=== PATIENT | male | born 1950 | race Caucasian/White ===

== ENCOUNTER 2023-11-25 22:55 | Inpatient (IN) | payer OTHER, MEDICARE, SELFPAY ==
--- NOTE | ~2023-11-25 | XR_ITS ---
AP view of the pelvis and AP and lateral views of the bilateral hips Clinical history: Pain Findings: There is an acute subcapital fracture of the right femoral neck, with mild displacement. No left femoral neck fracture seen. Osseous alignment is anatomic. Bilateral hip and SI joint spaces ar e preserved. Soft tissues are unremarkable. Impression: Acute subcapital fracture of the right femoral neck. Reviewed, dictated and finalized at location . Impression: Acute subcapital fracture of the right femoral neck.
--- NOTE | ~2023-11-25 | XR_ITS ---
EXAM: XR hip RT min 2V DATE: 11/27/2023 17:27 HISTORY: RT BIPOLAR HIP, POST-OP . COMPARISON: None available. FINDINGS: Interval bipolar hip arthroplasty of the right hip. Lateral tilt of the acetabular cup. Nor mal mineralization. No fracture or dislocation. No lytic or blastic lesion. No erosion or periosteal change. Scattered subcutaneous gas about the right hip. No radiopaque foreign body. IMPRESSION: Postsurgical changes, status post bipolar hip arthroplasty of the right hip. Reviewed, dictated and finalized at location K. IMPRESSION: Postsurgical changes, status post bipolar hip arthroplasty of the r ight hip.
--- NOTE | ~2023-11-25 | XR_ITS ---
AP and oblique views of the bilateral ribs Clinical History: Pain Findings: Acute nondisplaced fracture of the right ninth rib noted. No other fracture seen.. Lungs ar e clear, without focal consolidation or pleural effusion. Cardiomediastinal contour is within normal limits. Soft tissues are unremarkable. Impression: Probable acute nondisplaced right ninth rib fracture. Reviewed, dictated and finalized at location . Impression: Probable acute nondisplaced right ninth rib fracture.
--- NOTE | ~2023-11-25 | CT_ITS ---
CT head without contrast Indication: Status post fall Technique: Serial scans were obtained through the brain without the administration of contrast. Dose reduction technique was used on this scan by utilizing automated exposure control and iterative recon struction technique. The dose-length product (DLP) was 681.00 mGy-cm. Findings: There is no evidence of intracranial hemorrhage, mass lesion, or acute infarct. The ventri cles and subarachnoid spaces are dilated, consistent with mild atrophy. Low attenuation regions are seen within the periventricular white matter bilaterally, likely representing changes from chronic mi crovascular ischemic disease. There is no evidence of edema, mass effect or midline shift. The visu alized paranasal sinuses and mastoid air cells are clear. Impression: No intracranial hemorrhage, mass, or acute infarct. Atrophy and chronic white matter changes, as above. Reviewed, dictated and finalized at location . Impression: No intracranial hemorrhage, mass, or acute infarct. Atrophy and chronic white matter changes, as above.
[2023-11-25 22:55] VITALS: BP 118/67; PULSE 63; RESP 20; TEMP 37.1; O2SAT 92
[2023-11-25 23:04] VITALS: PULSE 64; RESP 16; O2SAT 91
--- NOTE | 2023-11-25 23:21 | ED.GENADULT ---
HPI - General Adult General Chief complaint: Fall Stated complaint: slip and fall in living room Time Seen by Provider: 11/25/23 22:59 History of Present Illness HPI narrative: Israel Corral is a 73 y/o male who presents with reports of tripping over his feet in his living room tonight. His was able to assist him up but he is having right hip pain. Denies hitting his head/ denies LOC States he uses a cane and sometimes a walker when he is out of the house but while in his home he ambulates without assistance Related Data Home Medications Medication Instructions Recorded Confirmed Suboxone 8 mg sublingual BID 11/26/23 11/26/23 carvedilol 6.25 mg tablet (Coreg) 6.25 mg PO BID 11/26/23 11/26/23 lactulose 20 gram/30 mL oral 30 ml PO TID 11/26/23 11/26/23 solution omeprazole 20 mg capsule,delayed 20 mg PO DAILY 11/26/23 11/26/23 release sertraline 100 mg tablet 100 mg PO QHS 11/26/23 11/26/23 Allergies Allergy/AdvReac Type Severity Reaction Status Date / Time Interferons Allergy Other Verified 11/25/23 23:03 ribavirin Allergy Other Verified 11/25/23 23:03 Review of Systems Review of Systems: All systems reviewed & are unremarkable except as noted in HPI and below PMFSH Social History Social History Smoking status: Former smoker Tobacco type: cigarettes Second hand tobacco smoke exposure: No Smoking end date: 04/24/06 Alcohol intake: never Substance use: never Do You Feel Safe in your Home?: Yes Lack of Transportation: No Lack of Food: Never True Current Housing: I Have Housing Concerned About Future Housing: No Difficulty Paying Gas/Electric Bills: No Difficulty Paying for Meds: No Currently Unemployed: No Education: Decline to Answer Difficulty w/ Childcare or Family Care: No Spiritual care concerns: No Exam Narrative: GENERAL: Well-appearing, well-nourished, and in no acute distress. HEAD: Normocephalic, atraumatic. EYES: PERRLA and EOMI. ENT: Nares clear, no rhinorrhea or epistaxis. Mucous membranes moist. Oropharynx without tonsillar hypertrophy exudate or other lesions. NECK: Supple. No adenopathy or masses. No carotid bruits or JVD CHEST: Clear to auscultation. No respiratory distress. No wheezes rales or rhonchi HEART: Regular rate and rhythm. No murmur heard. Normal peripheral pulses. ABDOMEN: Soft, nontender, nondistended, normal active bowel sounds. EXTREMITIES: Right hip pain / abrasion to lateral right wrist but denies any pain NEURO: No focal deficits. Alert and oriented x3. PSYCH: Normal mood and affect. Course Vital Signs Vital signs: Vital Signs Temperature 37.1 C 11/25/23 22:55 Pulse Rate 63 11/25/23 22:55 Respiratory Rate 20 11/25/23 22:55 Blood Pressure 118/67 11/25/23 22:55 Pulse Oximetry 92 11/25/23 22:55 Oxygen Delivery Room Air 11/25/23 22:55 Temperature 36.6 C 11/28/23 15:36 Pulse Rate 63 11/28/23 15:36 Respiratory Rate 20 11/28/23 15:36 Blood Pressure 97/47 L 11/28/23 15:36 Pulse Oximetry 94 11/28/23 15:36 Oxygen Delivery Room Air 11/28/23 08:17 Oxygen Flow Rate 1 11/27/23 20:00 Fraction of Inspired Oxygen 11/26/23 22:02 Medical Decision Making MDM Narrative Medical decision making narrative: 73 y/o presents after Mechanical ground level fall at home, he was able to get back up with his 's assistance Complains of right hip pain + pain to right hip distal pulses present Denies hitting his head/ no LOC Denies chest pain No cervical / thoracic / lumbar spinal tenderness with palpation No evidence of head trauma Denies being on any blood thinners Plan to check xray of hips/pelvis/ ribs and ct brain while treating his pain Hip/ pelvic xr read by Dr. Dodge who confirms he has a right femoral neck fracture went to update pt and his is at the bedside and states he does have a hx of li
[2023-11-25 23:23] VITALS: O2SAT 95
[2023-11-25] MEDS: HYDROcodone/acetaminophen (*CRX) 5-325 MG TABLET 1 TAB PO (23:28)
[2023-11-26] VITALS (38 sets, daily range): BP systolic 104–123; BP diastolic 56–74; PULSE 63–80; RESP 16–20; TEMP 36.6–37; O2SAT 90–97; BMI 28.0
[2023-11-26 01:02] LABS: Basophils Percent Auto 0.4 % (0.2-1.2); Eosinophils Percent Auto 0.9 % (0-4.4); Hematocrit 33.4 % (42.0-52.0); Hemoglobin 11.2 g/dL (14.0-18.0); Immature Granulocyte Absolute 0.01 K/mm3 (0.00-0.031); Immature Granulocyte Percent A 0.4 % (0-0.5); Immature Platelet Fraction Pct 2.9 % (0.9-11.2); Lymphocytes Absolute Auto 0.28 K/mm3 (0.9-3.2); Lymphocytes Percent Auto 12.3 % (18.3-44.2); Mean Corpuscular HGB Conc 33.5 g/dl (32-36); Mean Corpuscular Hemoglobin 34.4 pg (26-34); Mean Corpuscular Volume 102.5 fl (80-100); Mean Platelet Volume 9.8 fl (7.4-10.4); Monocytes Absolute Auto 0.1 K/mm3 (0.1-0.6); Monocytes Percent Auto 4.4 % (2.6-8.5); Neutrophils Absolute Auto 1.9 K/mm3 (1.3-6.7); Neutrophils Percent Auto 81.6 % (45.5-73.1); Platelet Count Result 51 k/mm3 (150-375); Red Blood Count 3.26 M/mm3 (4.6-6.20); Red Cell Distribution Width 17.4 % (11.5-14.5); White Blood Count 2.3 K/mm3 (4.5-10.0)
[2023-11-26 01:09] LABS: Alanine Aminotransferase 32 U/L (6-50); Albumin Level 3.4 g/dL (3.5-5.1); Alkaline Phosphatase 106 U/L (38-126); Anion Gap 7 mmol/L (4-12); Aspartate Amino Transferase 72 U/L (17-59); Bilirubin,Total 1.6 mg/dL (0.2-1.3); Blood Urea Nitrogen 19 mg/dL (9-20); Calcium 8.8 mg/dL (8.4-10.2); Carbon Dioxide 26 mmol/L (22-30); Chloride 104 mmol/L (98-107); Estimated CRCL calculation 58 ml/min; Estimated Glomerular Filt Rate > 60; Glucose 149 mg/dL (65-110); Potassium 4.5 mmol/L (3.4-5.0); Sodium 137 mmol/L (137-145)
[2023-11-26 01:12] LABS: INR 1.4; Prothrombin Time 17.8 Seconds (11.1-14.7)
[2023-11-26 01:34] LABS: Anisocytosis 1+; Platelet Estimate Decreased (Adequate); Schistocytes None Seen; Tear Drop Cells 1+
[2023-11-26] MEDS: MORPHINE SULFATE (*CRX) 2 MG/ML INJ IV PUSH ×4 (03:30→20:41)
--- NOTE | 2023-11-26 04:41 | PC.NURSE ---
Called [phone] for patient Sarah to let her know patients room number.
--- NOTE | 2023-11-26 05:10 | PC.NURSE ---
This patient was admitted to Room 243. Patient/family oriented to hospital policies and general routines including ID bracelet, bed and alarms, visiting hours, pain management, procedures, bathroom and other care routines, personal items, smoking policy, room service/diet, and visiting hours. Information on how to activate the Rapid Response Team has been discussed. Patient/Family are encouraged to report perceived risks to care and to ask questions if they do not understand what they are told or what they should do.
--- NOTE | 2023-11-26 05:11 | PC.NURSE ---
No medications are listed for this pt. Pt is unable to state his medications/dosages. Pt's is [facility].
--- NOTE | 2023-11-26 10:33 | PM.CNOR ---
Assessment and Plan Assessment and plan (1) Displaced fracture of right femoral neck: Code(s): S72.001A - Fracture of unspecified part of neck of right femur, initial encounter for closed fracture Status: Acute (2) Fall: Qualifiers: Encounter type: initial encounter Qualified Code(s): W19.XXXA - Unspecified fall, initial encounter Code(s): W19.XXXA - Unspecified fall, initial encounter Status: Acute (3) Closed rib fracture: Qualifiers: Encounter type: initial encounter Laterality: right Rib fracture type: single rib Qualified Code(s): S22.31XA - Fracture of one rib, right side, initial encounter for closed fracture Code(s): S22.39XA - Fracture of one rib, unspecified side, initial encounter for closed fracture Status: Acute Plan Displaced right hip femoral neck fracture. Will benefit from bipolar hemiarthroplasty. History of liver cirrhosis. Platelets are quite low. Discussed potential for need of platelet transfusion. Over 50 should be adequate. Will discuss with the hospitalist, and anesthesia. Discussed care plan with Case Management. Good potential candidate for rehab for 2-4 weeks. Proceed with right hip bipolar hemiarthroplasty. Risks, benefits, and alternatives discussed. History of Present Illness HPI Consult date: 11/26/23 Chief complaint: Right hip fracture/Fall Narrative: Patient complains of acute hip pain. Fell from standing height. Admitted through the emergency room for definitive management. No previous hip pain. Comfortable at rest with morphine. No numbness, tingling, or other associated symptoms. Relevant history includes cirrhosis of the liver with low platelet count at 51. Review of Systems Review of Systems: Denies loss of consciousness. O2 sats at 92%. Improved with O2 nasal cannula. All systems reviewed & are unremarkable except as noted in HPI and below [facility] [place] Social History Social History Smoking status: Former smoker Tobacco type: cigarettes Second hand tobacco smoke exposure: No Smoking end date: 04/24/06 Alcohol intake: never Substance use: never Do You Feel Safe in your Home?: Yes Lack of Transportation: No Lack of Food: Never True Current Housing: I Have Housing Concerned About Future Housing: No Difficulty Paying Gas/Electric Bills: No Difficulty Paying for Meds: No Currently Unemployed: No Education: Decline to Answer Difficulty w/ Childcare or Family Care: No Spiritual care concerns: No Meds Home Medications and Allergies Allergies Allergy/AdvReac Type Severity Reaction Status Date / Time Interferons Allergy Other Verified 11/25/23 23:03 ribavirin Allergy Other Verified 11/25/23 23:03 Vital Signs Vital Signs - 24 hr 11/25/23 22:55 11/25/23 23:04 11/25/23 23:23 Temperature 37.1 C Pulse Rate 63 64 Respiratory Rate 20 16 Blood Pressure 118/67 Pulse Oximetry 92 91 95 Oxygen Delivery Room Air 11/26/23 00:07 11/26/23 00:15 11/26/23 00:30 Temperature Pulse Rate Respiratory Rate Blood Pressure Pulse Oximetry 94 95 93 Oxygen Delivery 11/26/23 00:45 11/26/23 00:59 11/26/23 01:00 Temperature Pulse Rate Respiratory Rate Blood Pressure 120/74 Pulse Oximetry 94 91 92 Oxygen Delivery 11/26/23 01:01 11/26/23 01:20 11/26/23 01:30 Temperature Pulse Rate Respiratory Rate Blood Pressure 123/68 Pulse Oximetry 95 94 90 Oxygen Delivery 11/26/23 01:31 11/26/23 01:32 11/26/23 01:45 Temperature Pulse Rate 63 Respiratory Rate 17 Blood Pressure 115/56 L Pulse Oximetry 92 91 94 Oxygen Delivery 11/26/23 02:00 11/26/23 02:01 11/26/23 02:15 Temperature Pulse Rate 79 Respiratory Rate 18 Blood Pressure 111/63 116/60 Pulse Oximetry 91 91 97 Oxygen Delivery 11/26/23 02:30 11/26/23 02:31 11/26/23 02:45 Te
--- NOTE | 2023-11-26 11:29 | PM.IMHP ---
H&P: HPI History of Present Illness Date/Time: 11/26/23 11:29 Chief Complaint: Fall Narrative: ER-HPI narrative: Israel Corral is a 73 y/o male who presents with reports of tripping over his feet in his living room tonight. His was able to assist him up but he is having right hip pain. Denies hitting his head/ denies LOC States he uses a cane and sometimes a walker when he is out of the house but while in his home he ambulates without assistance patient is found to have acute subcapital fracture of the right femoral neck. patient is seen by Dr. Messer and recommended bipolar hemiarthroplasty, patient with history of liver cirrhosis and thrombocytopenia no actual counts of platelet are available, repeat cbc with MD showed platelets of 52,000, patient needs to have minimum of 50,000 for the surgery. Patient had been daily drinker of 8oz whisky for 18yrs until last september of 2022 and since then he has not had any alcohol. patient fell on right side and has complained for right rib pain,, x-ray showed acute nondisplaced right 9th rib fracture. Review of Systems Review of Systems: Denies loss of consciousness. O2 sats at 92%. Improved with O2 nasal cannula. All systems reviewed & are unremarkable except as noted in HPI and below PMFSH Social History Social History Smoking status: Former smoker Tobacco type: cigarettes Second hand tobacco smoke exposure: No Smoking end date: 04/24/06 Alcohol intake: never Substance use: never Do You Feel Safe in your Home?: Yes Lack of Transportation: No Lack of Food: Never True Current Housing: I Have Housing Concerned About Future Housing: No Difficulty Paying Gas/Electric Bills: No Difficulty Paying for Meds: No Currently Unemployed: No Education: Decline to Answer Difficulty w/ Childcare or Family Care: No Spiritual care concerns: No Meds Home Medications and Allergies Home Medications Medication Instructions Recorded Confirmed Type Suboxone 8 mg sublingual BID 11/26/23 11/26/23 History carvedilol 6.25 mg tablet (Coreg) 6.25 mg PO BID 11/26/23 11/26/23 History lactulose 20 gram/30 mL oral 30 ml PO TID 08/04/24 08/04/24 History solution omeprazole 20 mg capsule,delayed 20 mg PO DAILY 11/26/23 11/26/23 History release sertraline 100 mg tablet 100 mg PO QHS 11/26/23 11/26/23 History Allergies Allergy/AdvReac Type Severity Reaction Status Date / Time Interferons Allergy Other Verified 11/25/23 23:03 ribavirin Allergy Other Verified 11/25/23 23:03 Vital Signs Vital Signs - 24 hr 11/25/23 22:55 11/25/23 23:04 11/25/23 23:23 Temperature 37.1 C Pulse Rate 63 64 Respiratory Rate 20 16 Blood Pressure 118/67 Pulse Oximetry 92 91 95 Oxygen Delivery Room Air 11/26/23 00:07 11/26/23 00:15 11/26/23 00:30 Temperature Pulse Rate Respiratory Rate Blood Pressure Pulse Oximetry 94 95 93 Oxygen Delivery 11/26/23 00:45 11/26/23 00:59 11/26/23 01:00 Temperature Pulse Rate Respiratory Rate Blood Pressure 120/74 Pulse Oximetry 94 91 92 Oxygen Delivery 11/26/23 01:01 11/26/23 01:20 11/26/23 01:30 Temperature Pulse Rate Respiratory Rate Blood Pressure 123/68 Pulse Oximetry 95 94 90 Oxygen Delivery 11/26/23 01:31 11/26/23 01:32 11/26/23 01:45 Temperature Pulse Rate 63 Respiratory Rate 17 Blood Pressure 115/56 L Pulse Oximetry 92 91 94 Oxygen Delivery 11/26/23 02:00 11/26/23 02:01 11/26/23 02:15 Temperature Pulse Rate 79 Respiratory Rate 18 Blood Pressure 111/63 116/60 Pulse Oximetry 91 91 97 Oxygen Delivery 11/26/23 02:30 11/26/23 02:31 11/26/23 02:45 Temperature Pulse Rate Respiratory Rate Blood Pressure 116/60 Pulse Oximetry 92 93 92 Oxygen Delivery 11/26/23 03:00 11/26/23 03:01 11/26/23 03:15 Temperature Pulse Rate Re
[2023-11-26] MEDS: LACTULOSE 20 GM/30 ML UDC PO ×2 (12:31→18:10)
[2023-11-26 12:32] LABS: Eosinophils Percent Auto 0.9 % (0-4.4); Hematocrit 33.3 % (42.0-52.0); Hemoglobin 11.2 g/dL (14.0-18.0); Immature Granulocyte Absolute 0.01 K/mm3 (0.00-0.031); Immature Granulocyte Percent A 0.3 % (0-0.5); Immature Platelet Fraction Pct 3.2 % (0.9-11.2); Lymphocytes Absolute Auto 0.46 K/mm3 (0.9-3.2); Lymphocytes Percent Auto 13.1 % (18.3-44.2); Mean Corpuscular HGB Conc 33.6 g/dl (32-36); Mean Corpuscular Hemoglobin 34.5 pg (26-34); Mean Corpuscular Volume 102.5 fl (80-100); Mean Platelet Volume 11.1 fl (7.4-10.4); Monocytes Absolute Auto 0.3 K/mm3 (0.1-0.6); Monocytes Percent Auto 9.4 % (2.6-8.5); Neutrophils Absolute Auto 2.7 K/mm3 (1.3-6.7); Neutrophils Percent Auto 76.3 % (45.5-73.1); Platelet Count Result 52 k/mm3 (150-375); Red Blood Count 3.25 M/mm3 (4.6-6.20); Red Cell Distribution Width 17.4 % (11.5-14.5); White Blood Count 3.5 K/mm3 (4.5-10.0)
[2023-11-26] MEDS: carvediloL 6.25 MG TABLET PO ×2 (18:10→20:37)
--- NOTE | 2023-11-26 19:57 | PC.NURSE ---
Spoke with Dr. Pro to determine if patient should continue home suboxone while on morphine in hospital. Dr. Pro asked me to call pharmacy and if they recommend we should hold suboxone, may place it on hold. Spoke with [place] in pharmacy who ultimately concluded I should discuss with surgeon, as it is his preference of how we manage patient's pain during/after surgery and at discharge. Spoke wih Dr. Messer and he would like me to place suboxone on hold at this time until he is able to discuss with anesthesia how to precede. Patient has seemed fairly comfortable with PRN morphine that he has been receiving today for pain management, no suboxone since yesterday. Dr. Messer to decide whether to do morphine/PO narcotics or suboxone for pain management while hospitalized and at discharge.
[2023-11-26] MEDS: SERTRALINE HCL 50 MG TABLET 100 MG PO (20:37)
[2023-11-27] VITALS (21 sets, daily range): BP systolic 98–121; BP diastolic 52–84; PULSE 58–81; RESP 12–19; TEMP 36.2–37.2; O2SAT 92–100
[2023-11-27] MEDS: MORPHINE SULFATE (*CRX) 2 MG/ML INJ IV PUSH ×2 (06:21→09:17)
[2023-11-27 06:58] LABS: Basophils Percent Auto 0.3 % (0.2-1.2); Eosinophils Percent Auto 0.9 % (0-4.4); Hematocrit 34.4 % (42.0-52.0); Hemoglobin 11.6 g/dL (14.0-18.0); Immature Granulocyte Absolute 0.01 K/mm3 (0.00-0.031); Immature Granulocyte Percent A 0.3 % (0-0.5); Immature Platelet Fraction Pct 3.2 % (0.9-11.2); Lymphocytes Absolute Auto 0.54 K/mm3 (0.9-3.2); Lymphocytes Percent Auto 16.7 % (18.3-44.2); Mean Corpuscular HGB Conc 33.7 g/dl (32-36); Mean Corpuscular Hemoglobin 34.4 pg (26-34); Mean Corpuscular Volume 102.1 fl (80-100); Mean Platelet Volume 9.9 fl (7.4-10.4); Monocytes Absolute Auto 0.4 K/mm3 (0.1-0.6); Monocytes Percent Auto 13.3 % (2.6-8.5); Neutrophils Absolute Auto 2.2 K/mm3 (1.3-6.7); Neutrophils Percent Auto 68.5 % (45.5-73.1); Platelet Count Result 50 k/mm3 (150-375); Red Blood Count 3.37 M/mm3 (4.6-6.20); Red Cell Distribution Width 17.6 % (11.5-14.5); White Blood Count 3.2 K/mm3 (4.5-10.0)
[2023-11-27 07:04] LABS: Alanine Aminotransferase 29 U/L (6-50); Albumin Level 3.2 g/dL (3.5-5.1); Alkaline Phosphatase 78 U/L (38-126); Anion Gap 6 mmol/L (4-12); Aspartate Amino Transferase 58 U/L (17-59); Bilirubin,Total 2.1 mg/dL (0.2-1.3); Blood Urea Nitrogen 16 mg/dL (9-20); Calcium 8.3 mg/dL (8.4-10.2); Carbon Dioxide 26 mmol/L (22-30); Chloride 103 mmol/L (98-107); Estimated CRCL calculation 81 ml/min; Estimated Glomerular Filt Rate > 60; Glucose 100 mg/dL (65-110); Magnesium 1.6 mg/dL (1.6-2.3); Potassium 4.1 mmol/L (3.4-5.0); Sodium 135 mmol/L (137-145)
[2023-11-27] MEDS: PANTOPRAZOLE 40 MG TABLET PO (09:09)
[2023-11-27] MEDS: carvediloL 6.25 MG TABLET PO ×2 (09:10→20:21)
--- NOTE | 2023-11-27 12:17 | PM.IMPN ---
Progress Note: A&P Assessment and Plan (1) Displaced fracture of right femoral neck: Code(s): S72.001A - Fracture of unspecified part of neck of right femur, initial encounter for closed fracture Status: Acute Assessment and Plan: - Scheduled for bipolar hemiarthroplasty today. - Maintain bedrest. - Maintain butts pre-op. - Pain meds PRN. - PT/OT consult post-op with ortho restrictions. - Consider rehab placement pending PT/OT eval post-op. (2) Fall: Qualifiers: Encounter type: initial encounter Qualified Code(s): W19.XXXA - Unspecified fall, initial encounter Code(s): W19.XXXA - Unspecified fall, initial encounter Status: Acute Assessment and Plan: - Mechanical per patient statement. - Denies hitting head or LOC. - CT head: No intracranial hemorrhage, mass, or acute infarct. Atrophy and chronic white matter changes. (3) Closed rib fracture: Qualifiers: Encounter type: initial encounter Laterality: right Rib fracture type: single rib Qualified Code(s): S22.31XA - Fracture of one rib, right side, initial encounter for closed fracture Code(s): S22.39XA - Fracture of one rib, unspecified side, initial encounter for closed fracture Status: Acute Assessment and Plan: - X-Ray Ribs: Probable acute nondisplaced right ninth rib fracture. - Conservative mgt with pain meds PRN. - Continue to encourage with IS use. (4) Acquired thrombocytopenia: Code(s): D69.6 - Thrombocytopenia, unspecified Status: Chronic Assessment and Plan: - Possibly related to liver cirrhosis. - Platelet count trended down; 51,000>>52,000>>50,000. - Monitor closely post-op. - Consider platelet transfusion if levels < 50,000. - Monitor for bleeding signs. - SCD's for DVT PPx. (5) Chronic liver disease and cirrhosis: Code(s): K74.60 - Unspecified cirrhosis of liver; K76.9 - Liver disease, unspecified Status: Chronic Assessment and Plan: - Hx of alcoholism previously. - LFT's appear stable. - Monitor trend. Plan # Code Status: FULL-CODE. # Diet: NPO # DVT PPx: SCD's. # GI PPx: Protonix Time Spent With Patient Time with patient: 25 - 35 minutes Subjective Date/time seen: 11/27/23 11:05 Interval history: Patient is a 73 y/o male who presented to the ER after tripping over his feet in his living. His was able to assist him but he was having right hip pain so presented to the ER for evaluation. Patient denied hitting his head/ denied LOC, stated he uses a cane and sometimes a walker when he is out of the house otherwise he ambulates without assistance at home. Patient was found to have acute subcapital fracture of the right femoral neck and has been seen by Ortho Dr. Messer, who has recommended bipolar hemiarthroplasty scheduled this afternoon. Patient has a Hx of liver cirrhosis and thrombocytopenia from, but has no previous counts of platelet are available for comparison. Patient needs to have minimum of 50,000 for the surgery. Patient had been a daily drinker of 8oz whisky for 18yrs until last september of 2022 and has not had any alcohol since. Patient fell on Right side and reported right rib pain,,, X-Ray showed acute nondisplaced Right 9th rib fracture. Pt currently on bedrest and states feel comfortable unless he moves on the bed, that's when he develops Right hip pain, otherwise feels ok. Pt denies numbness or tingling to chasity. extremities, denies SOB, denies chest pain, denies headache or dizziness, denies abdominal pain, nausea or vomiting. Review of Systems Review of Systems: All systems reviewed & are unremarkable except as noted in HPI and below Exam Narrative: Patient is comfortable on bedrest, NAD HEENT: Atraumatic, EOM intact, eyes clear and none icteric LUNGS:CTA chasity. HEART: RR S1S2 ABD: BS+, Soft and nontender Lower extremities: no edema MS: RT lower extremity is externally rotated, right-hip region tende
--- NOTE | 2023-11-27 12:54 | PC.NURSE ---
To OR via bed. Voiding per Castillo.
[2023-11-27] MEDS: TRANEXAMIC ACID 1,000MG/ISO100 1,000 MG/100 ML BAG 200 MG IVPB (14:30)
--- NOTE | 2023-11-27 14:57 | WPDANESEPPF ---
Anes - Initial Pre Proc Eval Procedure: Operation Date: 11/27/23 14:30 Proposed Procedures p Right Bipolar - Joseluis Messer MD Date/Time: 11/27/23 14:57 Surgeon: Smiley Bolivar NP Pre Op Diagnosis: Right hip fracture/Fall Patient Data Age: 73 Gender: M Height: 1.78 m Weight: 88.7 kg Last Vital Signs Temp 37.2 C 11/27/23 14:15 Pulse 58 L 11/27/23 14:15 Resp 12 11/27/23 14:15 BP 102/62 11/27/23 14:15 Pulse Ox 95 11/27/23 14:15 O2 Del Method Nasal Cannula 11/27/23 09:09 O2 Flow Rate 1 11/27/23 09:09 FiO2 24 11/26/23 22:02 Allergies Allergy/AdvReac Type Severity Reaction Status Date / Time Interferons Allergy Other Verified 11/25/23 23:03 ribavirin Allergy Other Verified 11/25/23 23:03 Home Medications Medication Instructions Recorded Confirmed Type Suboxone 8 mg sublingual BID 11/26/23 11/26/23 History carvedilol 6.25 mg tablet (Coreg) 6.25 mg PO BID 11/26/23 11/26/23 History lactulose 20 gram/30 mL oral 30 ml PO TID 11/26/23 11/26/23 History solution omeprazole 20 mg capsule,delayed 20 mg PO DAILY 11/26/23 11/26/23 History release sertraline 100 mg tablet 100 mg PO QHS 11/26/23 11/26/23 History Laboratory Tests 11/26/23 11/27/23 11:07 06:50 WBC 3.2 L K/mm3 (4.5-10.0) RBC 3.37 L M/mm3 (4.6-6.20) Hgb 11.6 L g/dL (14.0-18.0) Hct 34.4 L % (42.0-52.0) MCV 102.1 H fl (80-100) MCH 34.4 H pg (26-34) MCHC 33.7 g/dl (32-36) RDW 17.6 H % (11.5-14.5) Plt Count 50 L k/mm3 (150-375) MPV 9.9 fl (7.4-10.4) Immature Gran % (Auto) 0.3 % (0-0.5) Neut % (Auto) 68.5 % (45.5-73.1) Lymph % (Auto) 16.7 L % (18.3-44.2) Coffey % (Auto) 13.3 H % (2.6-8.5) Eos % (Auto) 0.9 % (0-4.4) Baso % (Auto) 0.3 % (0.2-1.2) Lymph # (Auto) 0.54 L K/mm3 (0.9-3.2) Coffey # (Auto) 0.4 K/mm3 (0.1-0.6) Eos # (Auto) 0.0 K/mm3 (0-0.3) Baso # (Auto) 0.0 K/mm3 (0.0-0.1) Abs Immat Gran (auto) 0.01 K/mm3 (0.00-0.031) Absolute Neuts (auto) 2.2 K/mm3 (1.3-6.7) Absolute Nucleated RBC 0.000 K/mm3 (0.0-0.012) Nucleated RBC % 0.0 % (0.0-0.2) % Immature Plt Fraction 3.2 % (0.9-11.2) Sodium 135 L mmol/L (137-145) Potassium 4.1 mmol/L (3.4-5.0) Chloride 103 mmol/L (98-107) Carbon Dioxide 26 mmol/L (22-30) Anion Gap 6 mmol/L (4-12) BUN 16 mg/dL (9-20) Creatinine 0.70 mg/dL (0.7-1.3) Estim Creat Clear Calc 81 ml/min Estimated GFR > 60 (59 - ) Glucose 100 mg/dL (65-110) Calcium 8.3 L mg/dL (8.4-10.2) Magnesium 1.6 mg/dL (1.6-2.3) Total Bilirubin 2.1 H mg/dL (0.2-1.3) AST 58 U/L (17-59) ALT 29 U/L (6-50) Alkaline Phosphatase 78 U/L (38-126) Total Protein 8.0 g/dL (6.3-8.2) Albumin 3.2 L g/dL (3.5-5.1) Blood Type A Positive Antibody Screen Negative Patient hx anesthesia problems: none Family hx anesthesia problems: none Results Review: All pre-operative results and documents have been reviewed as part of the pre-operative evaluation. [facility] Social History Social History Smoking status: Former smoker Tobacco type: cigarettes Second hand tobacco smoke exposure: No Smoking end date: 04/24/06 Alcohol intake: never Substance use: never Do You Feel Safe in your Home?: Yes Lack of Transportation: No Lack of Food: Never True Current Housing: I Have Housing Concerned About Future Housing: No Difficulty Paying Gas/Electric Bills: No Difficulty Paying for Meds: No Currently Unemployed: No Education: Decline to Answer Difficulty w/ Childcare or Family Care: No Spiritual care concerns: No Anes - Eval Final PreProcedure
--- NOTE | 2023-11-27 15:08 | WPDHPUPDATE1 ---
History and Physical Update Update Date/Time: 11/27/23 15:08 History and Physical has been reviewed, including an updated exam of the patient. There are NO changes in the patient's condition. Risks, benefits, and alternatives have been discussed and questions answered. Patient agrees to proceed with procedure.
[2023-11-27] MEDS: ceFAZolin 2 GM/D5W 50 ML 2 GM/50 ML BAG IVPB ×2 (15:25→23:38)
[2023-11-27] MEDS: SODIUM CHLORIDE 0.9% IV 37.7 ML, MORPHINE SULFATE INJ (*CRX) 2 MG, ROPivacaine HCL 1% 2... INFILTRATE (16:02)
[2023-11-27] MEDS: LACTATED RINGERS 1,000 ML 30 ML IV CONT (17:00)
[2023-11-27] MEDS: fentaNYL CITRATE INJ (*CRX) 100 MCG/2 ML VIAL 25 MCG IV PUSH ×2 (17:09→17:21)
--- NOTE | 2023-11-27 17:09 | P.OP_ITS ---
Procedure Note - Detailed Date of Procedure 11/27/23 Pre-op Diagnosis 1. Displaced right hip femoral neck fracture 2. Liver cirrhosis with low platelets Post-op Diagnosis Same Procedure Performed Bipolar hemiarthroplasty right hip. Surgeon Joseluis Messer MD [employer] Bette Love PA-C Anesthesia General Findings 1 unit of platelets given preoperatively and a 2nd given during the procedure. [id number] intra-operative bleeding. Estimated at 500 mL. Careful coagulation with bipolar electrocautery utilized throughout the procedure. Dissection minimized as able. No significant abnormal findings. Good bone quality. No acetabular degeneration. Description of Procedure A general anesthetic was administered. The patient was carefully placed in the lateral decubitus position on the peg board positioner. An axillary roll was placed. The hip was prepped and draped in the usual sterile fashion. A minimally invasive optimized posterior approach to the hip was performed. An L shaped capsulotomy was created along the upper border of the piriformis. The short external rotators were tagged with number 2 high strength suture for later repair. The labrum was preserved. The femoral neck cut was performed. The femora l head was removed and sized. The acetabular floor was cleared of debris and loose tissue. The femur was sequentially broached. Trial was assessed for leg length and stability. The real component was impacted into position, trialed again, and the final head and bipolar component were assembled. The hip was reduced after copious irrigation. The short external rotators and capsule were repaired through drill holes in the posterior trochanter. The wound was closed in layers with 1 vicryl, 2,0, and 2-0 running barbed suture. Adhesive tapes were placed on the skin, followed by a sterile gauze dressing. The patient was extubated and brought to the recovery room. Implants Minh Accolate 2 hip stem 127 degree, size 5, UH are bipolar component outer diameter size 51, inner metal ball size 28 mm +4. Estimated Blood Loss 500 Urine Output 100 Drains No Pathology None sent Complications No immediate complications Condition Stable Disposition PACU [facility] Billing Surgery - Charge Forward: Surgery Billing
--- NOTE | 2023-11-27 18:00 | PC.NURSE ---
Returned from OR via bed. at bedside.
[2023-11-27] MEDS: SENNA/DOCUSATE SODIUM TABLET 2 TAB PO (18:49)
[2023-11-27] MEDS: ACETAMINOPHEN 325 MG TABLET 650 MG PO ×2 (18:49→23:37)
[2023-11-27] MEDS: LACTULOSE 20 GM/30 ML UDC PO (18:50)
[2023-11-27] MEDS: SERTRALINE HCL 50 MG TABLET 100 MG PO (20:22)
[2023-11-27] MEDS: HYDROmorphone HCL INJ (*CRX) 1 MG/ML SYR IV PUSH (20:35)
[2023-11-28 03:36] VITALS: BP 90/44; PULSE 64; RESP 20; TEMP 36.6; O2SAT 94
[2023-11-28 05:24] LABS: Hematocrit 33.6 % (42.0-52.0); Hemoglobin 10.7 g/dL (14.0-18.0); Immature Granulocyte Absolute 0.01 K/mm3 (0.00-0.031); Immature Granulocyte Percent A 0.4 % (0-0.5); Immature Platelet Fraction Pct 3.5 % (0.9-11.2); Lymphocytes Absolute Auto 0.25 K/mm3 (0.9-3.2); Lymphocytes Percent Auto 10.1 % (18.3-44.2); Mean Corpuscular HGB Conc 31.8 g/dl (32-36); Mean Corpuscular Hemoglobin 33.5 pg (26-34); Mean Corpuscular Volume 105.3 fl (80-100); Mean Platelet Volume 10.8 fl (7.4-10.4); Monocytes Absolute Auto 0.3 K/mm3 (0.1-0.6); Monocytes Percent Auto 10.5 % (2.6-8.5); Platelet Count Result 65 k/mm3 (150-375); Red Blood Count 3.19 M/mm3 (4.6-6.20); Red Cell Distribution Width 16.9 % (11.5-14.5); White Blood Count 2.5 K/mm3 (4.5-10.0)
[2023-11-28] MEDS: ACETAMINOPHEN 325 MG TABLET 650 MG PO (05:37)
[2023-11-28] MEDS: ceFAZolin 2 GM/D5W 50 ML 2 GM/50 ML BAG IVPB ×2 (05:38→16:00)
[2023-11-28 05:43] LABS: Alanine Aminotransferase 25 U/L (6-50); Alkaline Phosphatase 67 U/L (38-126); Anion Gap 7 mmol/L (4-12); Aspartate Amino Transferase 55 U/L (17-59); Bilirubin,Total 1.6 mg/dL (0.2-1.3); Blood Urea Nitrogen 26 mg/dL (9-20); Calcium 8.4 mg/dL (8.4-10.2); Carbon Dioxide 24 mmol/L (22-30); Chloride 102 mmol/L (98-107); Estimated CRCL calculation 64 ml/min; Estimated Glomerular Filt Rate > 60; Glucose 144 mg/dL (65-110); Magnesium 1.8 mg/dL (1.6-2.3); Potassium 4.8 mmol/L (3.4-5.0); Sodium 133 mmol/L (137-145)
[2023-11-28 08:00] VITALS: BP 97/57; PULSE 59; RESP 18; TEMP 36.6; O2SAT 93; O2SAT 95
[2023-11-28] MEDS: LACTULOSE 20 GM/30 ML UDC PO ×3 (08:13→18:00)
[2023-11-28 08:14] VITALS: PULSE 60
[2023-11-28] MEDS: carvediloL 6.25 MG TABLET PO (08:14)
[2023-11-28] MEDS: PANTOPRAZOLE 40 MG TABLET PO (08:15)
--- NOTE | 2023-11-28 10:09 | PM.PNORT ---
Progress Note: A&P Assessment and Plan (1) Displaced fracture of right femoral neck: Code(s): S72.001A - Fracture of unspecified part of neck of right femur, initial encounter for closed fracture Status: Acute Assessment and Plan: Postop day 1: Right bipolar hemiarthroplasty. Patient tolerated procedure well. No numbness or tingling. Due to cirrhosis, will stop the Tylenol. He would like to avoid narcotics due to a previous history of abuse. Will control pain with ibuprofen. Platelets have improved. Reviewed radiographs. We had a lengthy discussion regarding postoperative wound care, limitations, expectations, and exercises. Patient shows good understanding. Patient has had initial physical therapy and is tolerating it well. Ortho instructions: D/C to SNF/rehab Follow up in office in 4-6 weeks with xray. Wound Care:Remove Mepilex dressing at 7 days post op. Remove steristrips at 14 days post op. May shower. No soaking. PT: weightbearing as tolerated with a walker. Patient is not currently on a blood thinner for DVT prophylaxis due to his low platelet count. He is wearing SCDs. Pain medication: Ibuprofen. Subjective Subjective Date/Time Seen: 11/28/23 10:09 Interval history: Patient resting comfortably in chair. Minimal pain. Eager to start recovering and work with formal physical therapy. Review of Systems Review of Systems: All systems reviewed & are unremarkable except as noted in HPI and below Exam Narrative: Over weight 73 y/o Male. Resting comfortably in chair. Wearing compression socks bilaterally. Dressing dry and intact with no drainage. Moderate swelling. No ecchymosis. No erythema. No hematoma. Range of motion limited due to pain. Calf nontender. Thigh nontender. No varicosities. Distal pulses palpable. Objective Data Vital Signs Vital Signs: Vital Signs - 24 hr 11/27/23 13:55 11/27/23 14:00 11/27/23 14:15 Temperature 98.9 F 98.7 F 98.9 F Pulse Rate 62 62 58 L Respiratory Rate 16 16 12 Blood Pressure 101/55 L 102/62 102/62 Pulse Oximetry 100 100 95 Oxygen Delivery Oxygen Flow Rate 11/27/23 13:05 11/27/23 17:00 11/27/23 17:15 Temperature 98.5 F 97.2 F L Pulse Rate 67 68 64 Respiratory Rate 18 18 12 Blood Pressure 102/53 L 120/65 109/84 Pulse Oximetry 95 100 100 Oxygen Delivery Room Air Simple Face Mask Simple Face Mask Oxygen Flow Rate 8 8 11/27/23 17:22 11/27/23 17:30 11/27/23 17:38 Temperature Pulse Rate 62 Respiratory Rate 14 Blood Pressure 113/62 Pulse Oximetry 100 95 93 Oxygen Delivery Room Air Room Air Nasal Cannula Oxygen Flow Rate 2 11/27/23 17:45 11/27/23 18:06 11/27/23 18:00 Temperature 97.8 F Pulse Rate 66 62 Respiratory Rate 15 19 18 Blood Pressure 116/66 110/55 L Pulse Oximetry 99 99 95 Oxygen Delivery Nasal Cannula Nasal Cannula Oxygen Flow Rate 2 2 11/27/23 18:15 11/27/23 18:45 11/27/23 20:21 Temperature 97.8 F 97.8 F Pulse Rate 62 61 81 Respiratory Rate 18 18 Blood Pressure 111/57 L 103/56 L Pulse Oximetry 95 92 Oxygen Delivery Oxygen Flow Rate 11/27/23 19:36 11/27/23 20:00 11/27/23 23:36 Temperature 97.7 F 97.8 F Pulse Rate 64 65 Respiratory Rate 18 18 Blood Pressure 104/59 L 98/52 L Pulse Oximetry 95 95 94 Oxygen Delivery Nasal Cannula Oxygen Flow Rate 1 11/28/23 03:36 11/28/23 08:00 11/28/23 08:17 Temperature 97.8 F 97.8 F Pulse Rate 64 59 L Respiratory Rate 20 18 Blood Pressure 90/44 L 97/57 L Pulse Oximetry 94 93 Oxygen Delivery Room Air Oxygen Flow Rate 11/28/23 08:14 Temperature Pulse Rate 60 Respiratory Rate Blood Pressure Pulse Oximetry Oxygen Delivery Oxygen Flow Rate Intake/Output Intake/Output: Intake & Output 11/25/23 11/26/23 11/27/23 11/28/23 23:59 23:59 23:59 23:59 Intake Total 725 875 900 Output Total 530 2180 300 Balance 195 -1305 600 Meds/Results Medications: Active Medications
[2023-11-28 12:00] VITALS: BP 103/49; PULSE 63; RESP 20; TEMP 36.6; O2SAT 92
--- NOTE | 2023-11-28 12:04 | PCPTNOTE ---
On 11/28/23, the student, [Jina Acuna], provided care and completed [facility] documentation on this patient. I have reviewed the student's documentation and agree with the findings.
[2023-11-28] MEDS: IBUPROFEN 600 MG TABLET PO ×2 (12:13→18:00)
[2023-11-28 12:42] LABS: IFOB Positive Control Positive; Immunochemical Fecal Occult Bl Positive (N)
--- NOTE | 2023-11-28 12:47 | PM.IMPN ---
Progress Note: A&P Assessment and Plan (1) Displaced fracture of right femoral neck: Code(s): S72.001A - Fracture of unspecified part of neck of right femur, initial encounter for closed fracture Status: Acute Assessment and Plan: - s/p bipolar hemiarthroplasty per ortho yesterday. - Currently up on chair with PT. - Continue PT with ortho restrictions, WBAT. - Inpatient acute rehab recommended per PT/OT. - Case mgt to assist family with placement. - D/c butts. - Narcotics discontinued and suboxone restarted. - Ibuprofen PRN. - Continue PT/OT treatment with ortho restrictions. (2) Acquired thrombocytopenia: Code(s): D69.6 - Thrombocytopenia, unspecified Status: Chronic Assessment and Plan: - Possibly related to liver cirrhosis. - Platelet levels improving...50,000>>65,000 - Continue to monitor closely post-op. - Monitor for bleeding signs. - SCD's for DVT PPx. (3) Anemia associated with acute blood loss: Code(s): D62 - Acute posthemorrhagic anemia Status: Acute Assessment and Plan: - s/p hemiarthroplasty. - Hgb slightly decreased...11.6>>>10.7 - Monitor closely post-op. - No overt bleeding signs, including surgical incision region. - Monitor Hgb closely. (4) Generalized muscle weakness: Code(s): M62.81 - Muscle weakness (generalized) Status: Acute Assessment and Plan: - Deconditioning worsened by R. Hip surger. - Referred for acute rehab. - Continue PT/OT treatment. - Fall precautions. (5) Fall: Qualifiers: Encounter type: initial encounter Qualified Code(s): W19.XXXA - Unspecified fall, initial encounter Code(s): W19.XXXA - Unspecified fall, initial encounter Status: Acute Assessment and Plan: - Mechanical per patient statement. - Denies hitting head or LOC. - CT head: No intracranial hemorrhage, mass, or acute infarct. Atrophy and chronic white matter changes. - Continue PT/OT as we await rehab placement. - Fall precautions. (6) Closed rib fracture: Qualifiers: Encounter type: initial encounter Laterality: right Rib fracture type: single rib Qualified Code(s): S22.31XA - Fracture of one rib, right side, initial encounter for closed fracture Code(s): S22.39XA - Fracture of one rib, unspecified side, initial encounter for closed fracture Status: Acute Assessment and Plan: - X-Ray Ribs: Probable acute nondisplaced right ninth rib fracture. - Continue conservative mgt with pain meds PRN. - Continue to encourage with IS use. (7) Chronic liver disease and cirrhosis: Code(s): K74.60 - Unspecified cirrhosis of liver; K76.9 - Liver disease, unspecified Status: Chronic Assessment and Plan: - Hx of alcoholism previously. - LFT's stable. - Continue to monitor trend. Plan # Code Status: FULL-CODE. # Diet: NPO # DVT PPx: SCD's. # GI PPx: Protonix Time Spent With Patient Time with patient: 25 - 35 minutes Subjective Date/time seen: 11/28/23 11:45 Interval history: Patient seated on chair working working wih PT. Comfortable and in no acute distress. Pt reports pain only with movement otherwise states feels comfortable. Review of Systems Review of Systems: Denies numbness of tingling, chest pain, SOB, abdominal pain, dizziness. All systems reviewed & are unremarkable except as noted in HPI and below Exam Narrative: Patient is comfortable on chair working with PT, NAD HEENT: Atraumatic, PERRL, EOM intact, eyes clear and none icteric LUNGS:CTA chasity. HEART: RR S1S2 ABD: BS+, Soft and nontender Lower extremities: No edema chasity. LE MS: RT hip with clean,dry and intact dressing. SKIN: non-jaundiced. Dry dressing to R. Hip. Neuro: grossly intact. Cranial nerves II-XII grossly intact. Objective Data Vital Signs Vital Signs: Vital Signs - 24 hr 11/27/23 13:55 11/27/23 14:00 11/27/23 14:15 Temperature 98.9 F 98.7 F 98.9 F Pul
--- NOTE | 2023-11-28 12:55 | WPDANESPN ---
Anes - Prog Note Post-Op Date/Time: 11/28/23 12:55 Cardiovascular status: normal Respiratory status: normal Airway patency: baseline Mental status: baseline Post-Op hydration status: normal Vital Signs: Last Vital Signs Temp 36.6 C 11/28/23 12:00 Pulse 63 11/28/23 12:00 Resp 20 11/28/23 12:00 BP 103/49 L 11/28/23 12:00 Pulse Ox 92 11/28/23 12:00 O2 Del Method Room Air 11/28/23 08:17 O2 Flow Rate 1 11/27/23 20:00 FiO2 24 11/26/23 22:02 Pain Score (VAS): 210 I/O: Intake & Output 11/27/23 11/28/23 11/28/23 23:59 07:59 15:59 Intake Total 500 550 470 Output Total 1080 300 Balance -580 250 470 Laboratory Tests 11/28/23 04:56 11/28/23 04:56 11/26/23 11/28/23 11/28/23 11:07 04:56 10:24 WBC 2.5 L RBC 3.19 L Hgb 10.7 L Hct 33.6 L MCV 105.3 H MCH 33.5 MCHC 31.8 L RDW 16.9 H Plt Count 65 L MPV 10.8 H Immature Gran % (Auto) 0.4 Neut % (Auto) 79.0 H Lymph % (Auto) 10.1 L Mchenry % (Auto) 10.5 H Eos % (Auto) 0.0 Baso % (Auto) 0.0 L Lymph # (Auto) 0.25 L Mchenry # (Auto) 0.3 Eos # (Auto) 0.0 Baso # (Auto) 0.0 Abs Immat Gran (auto) 0.01 Absolute Neuts (auto) 2.0 Absolute Nucleated RBC 0.000 Nucleated RBC % 0.0 % Immature Plt Fraction 3.5 Sodium 133 L Potassium 4.8 Chloride 102 Carbon Dioxide 24 Anion Gap 7 BUN 26 H D Creatinine 0.90 Estim Creat Clear Calc 64 Estimated GFR > 60 Glucose 144 H Calcium 8.4 Magnesium 1.8 Total Bilirubin 1.6 H AST 55 ALT 25 Alkaline Phosphatase 67 Total Protein 7.0 Albumin 3.0 L Stl Occult Blood (IFOB) Positive H Blood Type A Positive Antibody Screen Negative Post-procedural complaints: none Patient Feedback: Patient satisfied with anesthetic care.
[2023-11-28 15:36] VITALS: BP 97/47; PULSE 63; RESP 20; TEMP 36.6; O2SAT 94
[2023-11-28 19:36] VITALS: BP 102/51; PULSE 66; RESP 18; TEMP 36.6; O2SAT 92
[2023-11-28] MEDS: SERTRALINE HCL 50 MG TABLET 100 MG PO (20:05)
[2023-11-28] MEDS: BUPRENORPHINE/NALOXONE (*CRX) 4 MG/1 MG SL FILM 2 EACH SUBLINGUAL (20:05)
[2023-11-29 05:56] LABS: Alanine Aminotransferase 22 U/L (6-50); Albumin Level 2.8 g/dL (3.5-5.1); Alkaline Phosphatase 78 U/L (38-126); Anion Gap 6 mmol/L (4-12); Aspartate Amino Transferase 62 U/L (17-59); Bilirubin,Total 1.3 mg/dL (0.2-1.3); Blood Urea Nitrogen 36 mg/dL (9-20); Calcium 8.2 mg/dL (8.4-10.2); Carbon Dioxide 26 mmol/L (22-30); Chloride 100 mmol/L (98-107); Estimated CRCL calculation 58 ml/min; Estimated Glomerular Filt Rate > 60; Glucose 114 mg/dL (65-110); Potassium 4.1 mmol/L (3.4-5.0); Sodium 132 mmol/L (137-145)
[2023-11-29 05:59] VITALS: BP 100/50; PULSE 75; RESP 18; TEMP 36.5; O2SAT 90
[2023-11-29] MEDS: IBUPROFEN 600 MG TABLET PO ×3 (06:29→17:42)
[2023-11-29 07:06] LABS: Eosinophils Percent Auto 1.3 % (0-4.4); Hematocrit 30.1 % (42.0-52.0); Immature Granulocyte Absolute 0.01 K/mm3 (0.00-0.031); Immature Granulocyte Percent A 0.3 % (0-0.5); Immature Platelet Fraction Pct 4.6 % (0.9-11.2); Lymphocytes Absolute Auto 0.37 K/mm3 (0.9-3.2); Lymphocytes Percent Auto 11.7 % (18.3-44.2); Mean Corpuscular HGB Conc 33.2 g/dl (32-36); Mean Corpuscular Hemoglobin 34.1 pg (26-34); Mean Corpuscular Volume 102.7 fl (80-100); Mean Platelet Volume 10.8 fl (7.4-10.4); Monocytes Absolute Auto 0.4 K/mm3 (0.1-0.6); Monocytes Percent Auto 11.7 % (2.6-8.5); Neutrophils Absolute Auto 2.4 K/mm3 (1.3-6.7); Platelet Count Result 61 k/mm3 (150-375); Red Blood Count 2.93 M/mm3 (4.6-6.20); Red Cell Distribution Width 16.9 % (11.5-14.5); White Blood Count 3.2 K/mm3 (4.5-10.0)
[2023-11-29 08:33] VITALS: O2SAT 92
[2023-11-29] MEDS: LACTULOSE 20 GM/30 ML UDC PO ×3 (09:29→16:48)
[2023-11-29 09:30] VITALS: RESP 18; O2SAT 92
[2023-11-29] MEDS: PANTOPRAZOLE 40 MG TABLET PO (09:30)
[2023-11-29] MEDS: BUPRENORPHINE/NALOXONE (*CRX) 4 MG/1 MG SL FILM 2 EACH SUBLINGUAL ×2 (09:30→20:23)
--- NOTE | 2023-11-29 10:11 | PM.IMPN ---
Progress Note: A&P Assessment and Plan (1) Displaced fracture of right femoral neck: Code(s): S72.001A - Fracture of unspecified part of neck of right femur, initial encounter for closed fracture Status: Acute Assessment and Plan: - s/p bipolar hemiarthroplasty per ortho. - Currently up on chair and we'll continue PT/OT treatment. - Continue WBAT per ORtho. - Awaiting Inpatient acute rehab placement per PT/OT recommendations. - Castillo discontinued and pt voiding well. - Narcotics discontinued and pain well controlled with Suboxone, patient's home meds. - Ibuprofen PRN. (2) Altered mental status: Code(s): R41.82 - Altered mental status, unspecified Status: Acute Assessment and Plan: - Possibly secondary to hepatic encephalopathy. - Ammonia levels elevated. - Lactulose initially held but resumed yesterday. - Continue Lactulose. - Continue to trend ammonia levels. (3) Acquired thrombocytopenia: Code(s): D69.6 - Thrombocytopenia, unspecified Status: Chronic Assessment and Plan: - Likely related to liver cirrhosis. - Platelet levels remain stable. - Continue to monitor. - Monitor for bleeding signs. - SCD's for DVT PPx. (4) GI bleed: Qualifiers: GI bleed type/associated pathology: unspecified gastrointestinal hemorrhage type Qualified Code(s): K92.2 - Gastrointestinal hemorrhage, unspecified Code(s): K92.2 - Gastrointestinal hemorrhage, unspecified Status: Acute Assessment and Plan: - FOB +ve inpatient. - Pt s/p hemiarthroplasty and would possibly not tolerate GI w/u currently. - Spouse bedside reports pt had a diagnostic colonoscopy within the last year and only colol polyps observed. - High risk for GI bleed with liver cirrhosis and thrombocytopenia. - Spouse prefers to f/u with pt GI at the [place]. - Continue to monitor Hgb levels closely. (5) Anemia associated with acute blood loss: Code(s): D62 - Acute posthemorrhagic anemia Status: Acute Assessment and Plan: - s/p hemiarthroplasty. - Hgb trending down..11.6>>>10.7>>10.0 - Possible in the setting of post-op. - Continue to monitor levels closely. - No overt bleeding signs noted, including on surgical incision region. (6) Generalized muscle weakness: Code(s): M62.81 - Muscle weakness (generalized) Status: Acute Assessment and Plan: - Deconditioning worsened by R. Hip surgery and possibly hepatic encephalopathy. - Continue PT/OT treatment. - Awaiting placement for acute inpatient rehab. - Fall precautions. (7) Fall: Qualifiers: Encounter type: initial encounter Qualified Code(s): W19.XXXA - Unspecified fall, initial encounter Code(s): W19.XXXA - Unspecified fall, initial encounter Status: Acute Assessment and Plan: - Mechanical per patient statement and family. - Denies hitting head or LOC. - CT head: No intracranial hemorrhage, mass, or acute infarct. Atrophy and chronic white matter changes. - Continue PT/OT treatment. - Fall precautions. (8) Closed rib fracture: Qualifiers: Encounter type: initial encounter Laterality: right Rib fracture type: single rib Qualified Code(s): S22.31XA - Fracture of one rib, right side, initial encounter for closed fracture Code(s): S22.39XA - Fracture of one rib, unspecified side, initial encounter for closed fracture Status: Acute Assessment and Plan: - X-Ray Ribs: Probable acute nondisplaced right ninth rib fracture. - Continue conservative mgt with pain meds PRN. - Continue to encourage with IS use. (9) Chronic liver disease and cirrhosis: Code(s): K74.60 - Unspecified cirrhosis of liver; K76.9 - Liver disease, unspecified Status: Chronic Assessment and Plan: - Previous Hx of alcoholism. - LFT's remain fairly stable. - Trend serum Ammonia levels. - Continue to monitor for changes in mentation. (10) Depressed mood:
[2023-11-29 11:20] LABS: Ammonia 45 umol/L (9-30)
--- NOTE | 2023-11-29 12:15 | PM.PNORT ---
Progress Note: A&P Assessment and Plan (1) Displaced fracture of right femoral neck: Code(s): S72.001A - Fracture of unspecified part of neck of right femur, initial encounter for closed fracture Status: Acute Assessment and Plan: Postop day 2: Right bipolar hemiarthroplasty. No changes in care plan. Patient tolerated procedure well. No numbness or tingling. Due to cirrhosis, will stop the Tylenol. He would like to avoid narcotics due to a previous history of abuse. Will control pain with ibuprofen. Platelets have improved. Reviewed radiographs. We had a lengthy discussion regarding postoperative wound care, limitations, expectations, and exercises. Patient shows good understanding. Patient has had initial physical therapy and is tolerating it well. Ortho instructions: D/C to SNF/rehab Follow up in office in 4-6 weeks with xray. Wound Care:Remove Mepilex dressing at 7 days post op. Remove steristrips at 14 days post op. May shower. No soaking. PT: weightbearing as tolerated with a walker. Patient is not currently on a blood thinner for DVT prophylaxis due to his low platelet count. He is wearing SCDs. Pain medication: Ibuprofen. Subjective Subjective Date/Time Seen: 11/29/23 12:15 Interval history: Patient sitting in a chair at the time of my visit. Pain controlled with ibuprofen. He is back on suboxone. Review of Systems Review of Systems: All systems reviewed & are unremarkable except as noted in HPI and below Exam Narrative: Over weight 73 y/o Male. Resting comfortably in chair. Wearing compression socks bilaterally. Dressing dry and intact with no drainage. Moderate swelling. No ecchymosis. No erythema. No hematoma. Range of motion limited due to pain. Calf nontender. Thigh nontender. No varicosities. Distal pulses palpable. Objective Data Vital Signs Vital Signs: Vital Signs - 24 hr 11/28/23 15:36 11/28/23 19:36 11/28/23 20:00 Temperature 97.8 F 97.8 F Pulse Rate 63 66 Respiratory Rate 20 18 Blood Pressure 97/47 L 102/51 L Pulse Oximetry 94 92 Oxygen Delivery Room Air Fraction of Inspired Oxygen 11/29/23 05:59 11/29/23 08:33 11/29/23 09:30 Temperature 97.7 F Pulse Rate 75 Respiratory Rate 18 18 Blood Pressure 100/50 L Pulse Oximetry 90 92 92 Oxygen Delivery Room Air Room Air Fraction of Inspired Oxygen 21 Intake/Output Intake/Output: Intake & Output 11/26/23 11/27/23 11/28/23 11/29/23 23:59 23:59 23:59 23:59 Intake Total 952 514 3754 410 Output Total 530 2180 850 500 Balance 195 1305 710 -90 Meds/Results Medications: Active Medications Generic Name Dose Route Start Last Admin Trade Name Freq PRN Reason Stop Dose Admin Buprenorphine/Naloxone 2 each 11/28/23 21:00 11/29/23 09:30 Buprenorphine/Naloxone (*Crx) 4 Mg/1 Mg Sl Film SUBLINGUAL 2 each Q12HR ELKIN Administration Carvedilol 6.25 mg 11/26/23 17:00 11/28/23 08:14 Carvedilol 6.25 Mg Tablet PO 6.25 mg Q12HR ELKIN Administration Hydroxyzine Pamoate 50 mg 11/27/23 17:51 Hydroxyzine Pamoate 25 Mg Capsule PO Q4H PRN Itching Ibuprofen 800 mg in 200 mls @ 400 mls/hr 11/27/23 17:51 Caldolor 800 Mg/200 Ml IVPB Q6H PRN Breakthrough Pain Rated 1-3 or NPO Ibuprofen 600 mg 11/28/23 10:05 11/29/23 11:44 Ibuprofen 600 Mg Tablet PO 600 mg Q6HR ELKIN Administration Lactulose 20 gm 11/26/23 13:00 11/29/23 09:29 Lactulose 20 Gm/30 Ml Udc PO 20 gm TID ELKIN Administration Naloxone HCl 0.1 mg 11/27/23 17:51 Naloxone Hcl 0.4 Mg/Ml Vial IV PUSH Q2M PRN Opiate Reversal Ondansetron HCl 4 mg 11/27/23 14:58 Ondansetron Inj 4 Mg/2 Ml Vial IV PUSH ONCE PRN Nausea Ondansetron HCl 4 mg 11/27/23 17:51 Ondansetron Inj 4 Mg/2 Ml Vial IV PUSH Q4H PRN Nausea And Vomiting Pantoprazole Sodium 40 mg 11/27/23 09:00 11/29/23 09:30 Pantoprazole 40 Mg Tablet PO 4
[2023-11-29 14:23] VITALS: BP 107/49; PULSE 77; RESP 20; TEMP 37.1; O2SAT 90
--- NOTE | 2023-11-29 14:36 | PCOTNOTE ---
Attempted to see Patient at this time. Patient sleeping in the bed at this time. Patient declined participating in activity this afternoon. Patient stated he is so tired, Patient having difficulty answering questions. Nursing staff notified and stated per his , Patient is on a medication at home to assist him with bowel movements and he has no t had the medication and is having cognition problems due to this. Patient has been confused all day today.
[2023-11-29] MEDS: SERTRALINE HCL 50 MG TABLET 100 MG PO (20:23)
[2023-11-29 22:00] VITALS: BP 116/52; PULSE 77; RESP 18; TEMP 36.8; O2SAT 96
[2023-11-30 06:00] VITALS: BP 106/55; PULSE 75; RESP 16; TEMP 36.6; O2SAT 94
[2023-11-30 06:18] LABS: Basophils Percent Auto 0.4 % (0.2-1.2); Eosinophils Percent Auto 1.5 % (0-4.4); Hematocrit 28.9 % (42.0-52.0); Hemoglobin 9.7 g/dL (14.0-18.0); Immature Granulocyte Absolute 0.01 K/mm3 (0.00-0.031); Immature Granulocyte Percent A 0.4 % (0-0.5); Lymphocytes Absolute Auto 0.54 K/mm3 (0.9-3.2); Lymphocytes Percent Auto 19.7 % (18.3-44.2); Mean Corpuscular HGB Conc 33.6 g/dl (32-36); Mean Corpuscular Hemoglobin 34.5 pg (26-34); Mean Corpuscular Volume 102.8 fl (80-100); Monocytes Absolute Auto 0.4 K/mm3 (0.1-0.6); Monocytes Percent Auto 15.7 % (2.6-8.5); Neutrophils Absolute Auto 1.7 K/mm3 (1.3-6.7); Neutrophils Percent Auto 62.3 % (45.5-73.1); Platelet Count Result 52 k/mm3 (150-375); Red Blood Count 2.81 M/mm3 (4.6-6.20); White Blood Count 2.7 K/mm3 (4.5-10.0)
[2023-11-30 06:26] LABS: Ammonia 16 umol/L (9-30)
[2023-11-30 06:32] LABS: Alanine Aminotransferase 21 U/L (6-50); Albumin Level 2.6 g/dL (3.5-5.1); Alkaline Phosphatase 78 U/L (38-126); Anion Gap 5 mmol/L (4-12); Aspartate Amino Transferase 53 U/L (17-59); Bilirubin,Total 1.5 mg/dL (0.2-1.3); Blood Urea Nitrogen 31 mg/dL (9-20); Calcium 8.3 mg/dL (8.4-10.2); Carbon Dioxide 29 mmol/L (22-30); Chloride 99 mmol/L (98-107); Estimated CRCL calculation 72 ml/min; Estimated Glomerular Filt Rate > 60; Glucose 126 mg/dL (65-110); Sodium 133 mmol/L (137-145)
[2023-11-30] MEDS: IBUPROFEN 600 MG TABLET PO ×3 (07:36→17:32)
[2023-11-30 07:48] LABS: Glucose Point of Care 130 mg/dl (65-105)
[2023-11-30] MEDS: LACTULOSE 20 GM/30 ML UDC PO ×3 (08:59→17:32)
[2023-11-30] MEDS: traMADol HCL (*CRX) 50 MG TABLET PO (08:59)
[2023-11-30] MEDS: PANTOPRAZOLE 40 MG TABLET PO (08:59)
[2023-11-30] MEDS: BUPRENORPHINE/NALOXONE (*CRX) 4 MG/1 MG SL FILM 2 EACH SUBLINGUAL ×2 (08:59→20:42)
--- NOTE | 2023-11-30 11:44 | PM.IMPN ---
Progress Note: A&P Assessment and Plan (1) Displaced fracture of right femoral neck: Code(s): S72.001A - Fracture of unspecified part of neck of right femur, initial encounter for closed fracture Status: Acute Assessment and Plan: - s/p bipolar hemiarthroplasty per ortho. - Currently up on chair and we'll continue PT/OT treatment. - Continue WBAT per ORtho. - Awaiting Inpatient acute rehab placement per PT/OT recommendations. - Castillo discontinued and pt voiding well. - Narcotics discontinued and pain well controlled with Suboxone, patient's home meds. - Ibuprofen PRN. (2) Altered mental status: Code(s): R41.82 - Altered mental status, unspecified Status: Acute Assessment and Plan: - Possibly secondary to hepatic encephalopathy. - Ammonia 16 down from 43 - Continue Lactulose. - Continue to trend ammonia levels. (3) Acquired thrombocytopenia: Code(s): D69.6 - Thrombocytopenia, unspecified Status: Chronic Assessment and Plan: - Likely related to liver cirrhosis. - Platelet levels remain stable. - Continue to monitor. - Monitor for bleeding signs. - SCD's for DVT PPx. (4) GI bleed: Qualifiers: GI bleed type/associated pathology: unspecified gastrointestinal hemorrhage type Qualified Code(s): K92.2 - Gastrointestinal hemorrhage, unspecified Code(s): K92.2 - Gastrointestinal hemorrhage, unspecified Status: Acute Assessment and Plan: - FOB +ve inpatient. - Pt s/p hemiarthroplasty and would possibly not tolerate GI w/u currently. - Spouse bedside reports pt had a diagnostic colonoscopy within the last year and only colol polyps observed. - High risk for GI bleed with liver cirrhosis and thrombocytopenia. - Spouse prefers to f/u with pt GI at the [place]. - Continue to monitor Hgb levels closely. (5) Anemia associated with acute blood loss: Code(s): D62 - Acute posthemorrhagic anemia Status: Acute Assessment and Plan: - s/p hemiarthroplasty. - Hgb trending down..11.6>>>10.7>>10.0 - Possible in the setting of post-op. - Continue to monitor levels closely. - No bleeding, iron panel and B12/folate pendign (6) Generalized muscle weakness: Code(s): M62.81 - Muscle weakness (generalized) Status: Acute Assessment and Plan: - Deconditioning worsened by R. Hip surgery and possibly hepatic encephalopathy. - Continue PT/OT treatment. - Awaiting placement for acute inpatient rehab. - Fall precautions. (7) Fall: Qualifiers: Encounter type: initial encounter Qualified Code(s): W19.XXXA - Unspecified fall, initial encounter Code(s): W19.XXXA - Unspecified fall, initial encounter Status: Acute Assessment and Plan: - Mechanical per patient statement and family. - Denies hitting head or LOC. - CT head: No intracranial hemorrhage, mass, or acute infarct. Atrophy and chronic white matter changes. - Continue PT/OT treatment. - Fall precautions. (8) Closed rib fracture: Qualifiers: Encounter type: initial encounter Laterality: right Rib fracture type: single rib Qualified Code(s): S22.31XA - Fracture of one rib, right side, initial encounter for closed fracture Code(s): S22.39XA - Fracture of one rib, unspecified side, initial encounter for closed fracture Status: Acute Assessment and Plan: - X-Ray Ribs: Probable acute nondisplaced right ninth rib fracture. - Continue conservative mgt with pain meds PRN. - Continue to encourage with IS use. (9) Chronic liver disease and cirrhosis: Code(s): K74.60 - Unspecified cirrhosis of liver; K76.9 - Liver disease, unspecified Status: Chronic Assessment and Plan: - Previous Hx of alcoholism. - LFT's remain fairly stable. - Trend serum Ammonia levels. - Continue lactulose as above monitor (10) Depressed mood: Code(s): R45.89 - Other symptoms and signs involving emotional state
[2023-11-30 12:09] LABS: Iron 37 ug/dL (49-181)
[2023-11-30 12:26] LABS: Percent Iron Saturation 12 % (20-50)
[2023-11-30 14:00] VITALS: BP 105/59; PULSE 77; RESP 16; TEMP 36.8; O2SAT 93
[2023-11-30 18:26] LABS: Folic Acid 11.4 ng/mL (2.76->20)
[2023-11-30] MEDS: SERTRALINE HCL 50 MG TABLET 100 MG PO (20:42)
[2023-11-30 22:00] VITALS: BP 112/54; PULSE 70; RESP 16; TEMP 36.3; O2SAT 93
[2023-12-01 05:43] LABS: Basophils Percent Auto 0.4 % (0.2-1.2); Eosinophils Absolute Auto 0.1 K/mm3 (0-0.3); Eosinophils Percent Auto 2.8 % (0-4.4); Hematocrit 30.3 % (42.0-52.0); Immature Granulocyte Absolute 0.01 K/mm3 (0.00-0.031); Immature Granulocyte Percent A 0.4 % (0-0.5); Lymphocytes Absolute Auto 0.58 K/mm3 (0.9-3.2); Lymphocytes Percent Auto 22.9 % (18.3-44.2); Mean Corpuscular Hemoglobin 34.6 pg (26-34); Mean Corpuscular Volume 104.8 fl (80-100); Mean Platelet Volume 10.7 fl (7.4-10.4); Monocytes Absolute Auto 0.3 K/mm3 (0.1-0.6); Neutrophils Absolute Auto 1.5 K/mm3 (1.3-6.7); Neutrophils Percent Auto 60.5 % (45.5-73.1); Platelet Count Result 59 k/mm3 (150-375); Red Blood Count 2.89 M/mm3 (4.6-6.20); Red Cell Distribution Width 17.4 % (11.5-14.5); White Blood Count 2.5 K/mm3 (4.5-10.0)
[2023-12-01 05:54] LABS: Alanine Aminotransferase 22 U/L (6-50); Albumin Level 2.6 g/dL (3.5-5.1); Alkaline Phosphatase 71 U/L (38-126); Anion Gap 5 mmol/L (4-12); Aspartate Amino Transferase 50 U/L (17-59); Bilirubin,Total 1.6 mg/dL (0.2-1.3); Blood Urea Nitrogen 21 mg/dL (9-20); Calcium 8.2 mg/dL (8.4-10.2); Carbon Dioxide 29 mmol/L (22-30); Chloride 102 mmol/L (98-107); Estimated CRCL calculation 81 ml/min; Estimated Glomerular Filt Rate > 60; Glucose 103 mg/dL (65-110); Potassium 4.1 mmol/L (3.4-5.0); Sodium 136 mmol/L (137-145)
[2023-12-01 06:00] VITALS: BP 114/57; PULSE 73; RESP 18; TEMP 36.2; O2SAT 96
[2023-12-01] MEDS: BUPRENORPHINE/NALOXONE (*CRX) 4 MG/1 MG SL FILM 2 EACH SUBLINGUAL ×2 (08:00→21:02)
[2023-12-01] MEDS: PANTOPRAZOLE 40 MG TABLET PO (08:00)
[2023-12-01] MEDS: LACTULOSE 20 GM/30 ML UDC PO ×3 (08:00→18:23)
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
[2023-12-01 10:07] LABS: Ammonia < 9 umol/L (9-30)
[2023-12-01] MEDS: IRON SUCROSE COMPLEX 400 MG, IRON SUCROSE COMPLEX 100 MG in SODIUM CHLORIDE 0.9% IV 250 ML 78.57 MG IVPB (13:02)
[2023-12-01 14:00] VITALS: BP 113/59; PULSE 66; RESP 16; TEMP 36.3; O2SAT 96
--- NOTE | 2023-12-01 17:03 | PM.IMPN ---
Progress Note: A&P Assessment and Plan (1) Displaced fracture of right femoral neck: Code(s): S72.001A - Fracture of unspecified part of neck of right femur, initial encounter for closed fracture Status: Acute Assessment and Plan: - s/p bipolar hemiarthroplasty per ortho. - Continue PT/OT treatment. - Continue WBAT per ORtho. - Awaiting Inpatient acute rehab placement. - Pain well controlled on Suboxone. - Ibuprofen PRN. (2) Altered mental status: Code(s): R41.82 - Altered mental status, unspecified Status: Acute Assessment and Plan: - Possibly secondary to hepatic encephalopathy. - Much improved and ammonia levels normalized. - Continue scheduled Lactulose TID. (3) Acquired thrombocytopenia: Code(s): D69.6 - Thrombocytopenia, unspecified Status: Chronic Assessment and Plan: - Likely related to liver cirrhosis. - Improving. - Continue to monitor levels. - No bleeding signs noted. - SCD's for DVT PPx. (4) GI bleed: Qualifiers: GI bleed type/associated pathology: unspecified gastrointestinal hemorrhage type Qualified Code(s): K92.2 - Gastrointestinal hemorrhage, unspecified Code(s): K92.2 - Gastrointestinal hemorrhage, unspecified Status: Acute Assessment and Plan: - FOB +ve inpatient. - Pt s/p hemiarthroplasty and would possibly not tolerate GI w/u currently. - Spouse bedside reports pt had a diagnostic colonoscopy within the last year and only colol polyps observed. - High risk for GI bleed with liver cirrhosis and thrombocytopenia. - Spouse prefers to f/u with pt GI at the [facility]. - Continue to monitor Hgb levels closely. (5) Anemia associated with acute blood loss: Code(s): D62 - Acute posthemorrhagic anemia Status: Acute Assessment and Plan: - s/p hemiarthroplasty. - Hgb appears stable and starting to trend up. - Iron panel noted with low Iron sats. - IV iron ordered. - Continue to monitor levels closely. (6) Generalized muscle weakness: Code(s): M62.81 - Muscle weakness (generalized) Status: Acute Assessment and Plan: - Deconditioning worsened by R. Hip surgery and possibly hepatic encephalopathy. - Continue PT/OT treatment. - Awaiting placement for acute inpatient rehab. - Fall precautions. (7) Fall: Qualifiers: Encounter type: initial encounter Qualified Code(s): W19.XXXA - Unspecified fall, initial encounter Code(s): W19.XXXA - Unspecified fall, initial encounter Status: Acute Assessment and Plan: - Mechanical per patient statement and family. - Denies hitting head or LOC. - CT head: No intracranial hemorrhage, mass, or acute infarct. Atrophy and chronic white matter changes. - Continue PT/OT treatment. - Fall precautions. (8) Closed rib fracture: Qualifiers: Encounter type: initial encounter Laterality: right Rib fracture type: single rib Qualified Code(s): S22.31XA - Fracture of one rib, right side, initial encounter for closed fracture Code(s): S22.39XA - Fracture of one rib, unspecified side, initial encounter for closed fracture Status: Acute Assessment and Plan: - X-Ray Ribs: Probable acute nondisplaced right ninth rib fracture. - Continue conservative mgt with pain meds PRN. - Continue to encourage with IS use. (9) Chronic liver disease and cirrhosis: Code(s): K74.60 - Unspecified cirrhosis of liver; K76.9 - Liver disease, unspecified Status: Chronic Assessment and Plan: - Previous Hx of alcoholism. - LFT's remain fairly stable. - Ammonia levels wnl. - Continue lactulose. (10) Depressed mood: Code(s): R45.89 - Other symptoms and signs involving emotional state Status: Acute Assessment and Plan: - Denies suicidal and homicidal ideations. - Sertraline restarted. Plan # Code Status: FULL-CODE. # Diet: Low sodium. # DVT PPx: SCD's. # GI PPx: Protonix Sub
[2023-12-01] MEDS: SERTRALINE HCL 50 MG TABLET 100 MG PO (21:02)
[2023-12-01 21:37] VITALS: BP 132/68; PULSE 84; RESP 16; TEMP 36.2; O2SAT 94
[2023-12-02] MEDS: IBUPROFEN 600 MG TABLET PO ×5 (00:07→23:29)
[2023-12-02 04:51] LABS: Basophils Percent Auto 0.4 % (0.2-1.2); Eosinophils Absolute Auto 0.1 K/mm3 (0-0.3); Eosinophils Percent Auto 2.6 % (0-4.4); Hematocrit 29.4 % (42.0-52.0); Immature Granulocyte Absolute 0.02 K/mm3 (0.00-0.031); Immature Granulocyte Percent A 0.7 % (0-0.5); Immature Platelet Fraction Pct 2.3 % (0.9-11.2); Lymphocytes Absolute Auto 0.53 K/mm3 (0.9-3.2); Lymphocytes Percent Auto 19.5 % (18.3-44.2); Mean Corpuscular Volume 102.8 fl (80-100); Mean Platelet Volume 9.2 fl (7.4-10.4); Monocytes Absolute Auto 0.4 K/mm3 (0.1-0.6); Monocytes Percent Auto 15.8 % (2.6-8.5); Neutrophils Absolute Auto 1.7 K/mm3 (1.3-6.7); Platelet Count Result 64 k/mm3 (150-375); Red Blood Count 2.86 M/mm3 (4.6-6.20); Red Cell Distribution Width 17.4 % (11.5-14.5); White Blood Count 2.7 K/mm3 (4.5-10.0)
[2023-12-02 05:04] LABS: Alanine Aminotransferase 22 U/L (6-50); Albumin Level 2.7 g/dL (3.5-5.1); Alkaline Phosphatase 75 U/L (38-126); Anion Gap 4 mmol/L (4-12); Aspartate Amino Transferase 47 U/L (17-59); Bilirubin,Total 1.6 mg/dL (0.2-1.3); Blood Urea Nitrogen 19 mg/dL (9-20); Calcium 7.9 mg/dL (8.4-10.2); Carbon Dioxide 29 mmol/L (22-30); Chloride 102 mmol/L (98-107); Estimated CRCL calculation 72 ml/min; Estimated Glomerular Filt Rate > 60; Glucose 115 mg/dL (65-110); Potassium 4.2 mmol/L (3.4-5.0); Sodium 135 mmol/L (137-145)
[2023-12-02 05:23] LABS: Hypochromasia 1+; Platelet Estimate Decreased (Adequate)
[2023-12-02 05:24] LABS: Anisocytosis 1+; Schistocytes Rare
[2023-12-02 06:00] VITALS: BP 132/64; PULSE 72; RESP 18; TEMP 36.3; O2SAT 96
[2023-12-02 09:16] VITALS: RESP 18; O2SAT 96
[2023-12-02] MEDS: PANTOPRAZOLE 40 MG TABLET PO (09:16)
[2023-12-02] MEDS: BUPRENORPHINE/NALOXONE (*CRX) 4 MG/1 MG SL FILM 2 EACH SUBLINGUAL ×2 (09:16→21:10)
[2023-12-02] MEDS: LACTULOSE 20 GM/30 ML UDC PO ×3 (09:16→17:14)
--- NOTE | 2023-12-02 10:16 | PM.IMPN ---
Progress Note: A&P Assessment and Plan (1) Displaced fracture of right femoral neck: Code(s): S72.001A - Fracture of unspecified part of neck of right femur, initial encounter for closed fracture Status: Acute Assessment and Plan: - s/p bipolar hemiarthroplasty per ortho. - Continue PT/OT treatment. - Continue WBAT per ORtho. - Awaiting Inpatient acute rehab placement. - Pain well controlled on Suboxone. - Ibuprofen PRN. (2) Altered mental status: Code(s): R41.82 - Altered mental status, unspecified Status: Acute Assessment and Plan: - Possibly secondary to hepatic encephalopathy. - Much improved. - Continue scheduled Lactulose TID. - Continue to monitor ammonia levels. (3) Acquired thrombocytopenia: Code(s): D69.6 - Thrombocytopenia, unspecified Status: Chronic Assessment and Plan: - Likely related to liver cirrhosis. - Continues to improve. - Continue to monitor levels. - No bleeding signs noted. - SCD's for DVT PPx. (4) GI bleed: Qualifiers: GI bleed type/associated pathology: unspecified gastrointestinal hemorrhage type Qualified Code(s): K92.2 - Gastrointestinal hemorrhage, unspecified Code(s): K92.2 - Gastrointestinal hemorrhage, unspecified Status: Acute Assessment and Plan: - FOB +ve inpatient. - Pt s/p hemiarthroplasty and would possibly not tolerate GI w/u currently. - Spouse bedside reports pt had a diagnostic colonoscopy within the last year and only colol polyps observed. - High risk for GI bleed with liver cirrhosis and thrombocytopenia. - Spouse prefers to f/u with pt GI at the [facility]. - Continue to monitor Hgb levels closely. (5) Anemia associated with acute blood loss: Code(s): D62 - Acute posthemorrhagic anemia Status: Acute Assessment and Plan: - s/p hemiarthroplasty. - Hgb stable and trending up. - Iron panel noted with low Iron sats. - IV iron ordered. - Continue to monitor levels closely. (6) Generalized muscle weakness: Code(s): M62.81 - Muscle weakness (generalized) Status: Acute Assessment and Plan: - Deconditioning worsened by R. Hip surgery and possibly hepatic encephalopathy. - Continue PT/OT treatment. - Awaiting placement for acute inpatient rehab. - Fall precautions. (7) Fall: Qualifiers: Encounter type: initial encounter Qualified Code(s): W19.XXXA - Unspecified fall, initial encounter Code(s): W19.XXXA - Unspecified fall, initial encounter Status: Acute Assessment and Plan: - Mechanical per patient statement and family. - Denies hitting head or LOC. - CT head: No intracranial hemorrhage, mass, or acute infarct. Atrophy and chronic white matter changes. - Continue PT/OT treatment. - Fall precautions. (8) Closed rib fracture: Qualifiers: Encounter type: initial encounter Laterality: right Rib fracture type: single rib Qualified Code(s): S22.31XA - Fracture of one rib, right side, initial encounter for closed fracture Code(s): S22.39XA - Fracture of one rib, unspecified side, initial encounter for closed fracture Status: Acute Assessment and Plan: - X-Ray Ribs: Probable acute nondisplaced right ninth rib fracture. - Continue conservative mgt with pain meds PRN. - Continue to encourage with IS use. (9) Chronic liver disease and cirrhosis: Code(s): K74.60 - Unspecified cirrhosis of liver; K76.9 - Liver disease, unspecified Status: Chronic Assessment and Plan: - Previous Hx of alcoholism. - LFT's remain fairly stable. - Ammonia levels wnl. - Continue lactulose. (10) Depressed mood: Code(s): R45.89 - Other symptoms and signs involving emotional state Status: Acute Assessment and Plan: - Denies suicidal and homicidal ideations. - Sertraline restarted. Plan # Code Status: FULL-CODE. # Diet: Low sodium. # DVT PPx: SCD's. # GI PPx: Protonix
[2023-12-02] MEDS: IRON SUCROSE COMPLEX 400 MG, IRON SUCROSE COMPLEX 100 MG in SODIUM CHLORIDE 0.9% IV 250 ML 78.57 MG IVPB (12:11)
[2023-12-02 14:40] VITALS: BP 137/76; PULSE 77; RESP 16; TEMP 36.8; O2SAT 94
[2023-12-02 21:02] VITALS: O2SAT 96
[2023-12-02] MEDS: SERTRALINE HCL 50 MG TABLET 100 MG PO (21:10)
[2023-12-02 22:00] VITALS: BP 135/66; PULSE 78; RESP 18; TEMP 36.2; O2SAT 96
[2023-12-03 05:02] LABS: Basophils Percent Auto 0.5 % (0.2-1.2); Hematocrit 30.4 % (42.0-52.0); Hemoglobin 10.1 g/dL (14.0-18.0); Immature Granulocyte Absolute 0.02 K/mm3 (0.00-0.031); Immature Platelet Fraction Pct 2.3 % (0.9-11.2); Lymphocytes Absolute Auto 0.43 K/mm3 (0.9-3.2); Lymphocytes Percent Auto 21.2 % (18.3-44.2); Mean Corpuscular HGB Conc 33.2 g/dl (32-36); Mean Corpuscular Hemoglobin 34.2 pg (26-34); Mean Corpuscular Volume 103.1 fl (80-100); Mean Platelet Volume 10.5 fl (7.4-10.4); Monocytes Absolute Auto 0.3 K/mm3 (0.1-0.6); Monocytes Percent Auto 14.8 % (2.6-8.5); Neutrophils Absolute Auto 1.2 K/mm3 (1.3-6.7); Neutrophils Percent Auto 60.5 % (45.5-73.1); Red Blood Count 2.95 M/mm3 (4.6-6.20); Red Cell Distribution Width 17.3 % (11.5-14.5)
[2023-12-03 05:23] LABS: Alanine Aminotransferase 24 U/L (6-50); Albumin Level 2.6 g/dL (3.5-5.1); Alkaline Phosphatase 72 U/L (38-126); Anion Gap 5 mmol/L (4-12); Aspartate Amino Transferase 51 U/L (17-59); Bilirubin,Total 1.7 mg/dL (0.2-1.3); Blood Urea Nitrogen 17 mg/dL (9-20); Calcium 8.1 mg/dL (8.4-10.2); Carbon Dioxide 29 mmol/L (22-30); Chloride 102 mmol/L (98-107); Estimated CRCL calculation 81 ml/min; Estimated Glomerular Filt Rate > 60; Glucose 104 mg/dL (65-110); Potassium 4.3 mmol/L (3.4-5.0); Sodium 136 mmol/L (137-145)
[2023-12-03 05:25] LABS: Platelet Count Result 62 k/mm3 (150-375)
[2023-12-03 05:26] LABS: Anisocytosis 1+; Hypochromasia 1+; Platelet Estimate Decreased (Adequate)
[2023-12-03 05:27] LABS: Schistocytes None Seen
[2023-12-03] MEDS: IBUPROFEN 600 MG TABLET PO ×4 (05:41→23:14)
[2023-12-03 06:00] VITALS: BP 121/57; PULSE 68; RESP 16; TEMP 36.3; O2SAT 95
--- NOTE | 2023-12-03 07:50 | PM.IMPN ---
Progress Note: A&P Assessment and Plan (1) Displaced fracture of right femoral neck: Code(s): S72.001A - Fracture of unspecified part of neck of right femur, initial encounter for closed fracture Status: Acute Assessment and Plan: - s/p bipolar hemiarthroplasty per ortho. - Continue PT/OT treatment. - Continue WBAT per ORtho. - Awaiting Inpatient acute rehab placement. - Pain well controlled on Suboxone- continue - Ibuprofen PRN. (2) Altered mental status: Code(s): R41.82 - Altered mental status, unspecified Status: Acute Assessment and Plan: - Possibly secondary to hepatic encephalopathy. - Much improved. - Continue scheduled Lactulose TID. - Continue to monitor ammonia levels. - resolved (3) Acquired thrombocytopenia: Code(s): D69.6 - Thrombocytopenia, unspecified Status: Chronic Assessment and Plan: - Likely related to liver cirrhosis. - Continues to improve. - Continue to monitor levels. - No bleeding signs noted. - SCD's for DVT PPx. (4) GI bleed: Qualifiers: GI bleed type/associated pathology: unspecified gastrointestinal hemorrhage type Qualified Code(s): K92.2 - Gastrointestinal hemorrhage, unspecified Code(s): K92.2 - Gastrointestinal hemorrhage, unspecified Status: Acute Assessment and Plan: - FOB +ve inpatient. - Pt s/p hemiarthroplasty and would possibly not tolerate GI w/u currently. - Spouse bedside reports pt had a diagnostic colonoscopy within the last year and only colol polyps observed. - High risk for GI bleed with liver cirrhosis and thrombocytopenia. - Spouse prefers to f/u with pt GI at the [facility]. - Continue to monitor Hgb levels closely reviewed- stable (5) Anemia associated with acute blood loss: Code(s): D62 - Acute posthemorrhagic anemia Status: Acute Assessment and Plan: - s/p hemiarthroplasty. - Hgb stable and trending up. - Iron panel noted with low Iron sats. - IV iron ordered. - Continue to monitor levels closely. (6) Generalized muscle weakness: Code(s): M62.81 - Muscle weakness (generalized) Status: Acute Assessment and Plan: - Deconditioning worsened by R. Hip surgery and possibly hepatic encephalopathy. - Continue PT/OT treatment. - Awaiting placement for acute inpatient rehab. - Fall precautions. (7) Fall: Qualifiers: Encounter type: initial encounter Qualified Code(s): W19.XXXA - Unspecified fall, initial encounter Code(s): W19.XXXA - Unspecified fall, initial encounter Status: Acute Assessment and Plan: - Mechanical per patient statement and family. - Denies hitting head or LOC. - CT head: No intracranial hemorrhage, mass, or acute infarct. Atrophy and chronic white matter changes. - Continue PT/OT treatment. - Fall precautions. (8) Closed rib fracture: Qualifiers: Encounter type: initial encounter Laterality: right Rib fracture type: single rib Qualified Code(s): S22.31XA - Fracture of one rib, right side, initial encounter for closed fracture Code(s): S22.39XA - Fracture of one rib, unspecified side, initial encounter for closed fracture Status: Acute Assessment and Plan: - X-Ray Ribs: Probable acute nondisplaced right ninth rib fracture. - Continue conservative mgt with pain meds PRN. - Continue to encourage with IS use. (9) Chronic liver disease and cirrhosis: Code(s): K74.60 - Unspecified cirrhosis of liver; K76.9 - Liver disease, unspecified Status: Chronic Assessment and Plan: - Previous Hx of alcoholism. - LFT's remain fairly stable. - Ammonia levels wnl. - Continue lactulose. (10) Depressed mood: Code(s): R45.89 - Other symptoms and signs involving emotional state Status: Acute Assessment and Plan: - Denies suicidal and homicidal ideations. - Sertraline restarted. Plan # Code Status: FULL-CODE. # Diet: Low sodium. # DVT
[2023-12-03] MEDS: PANTOPRAZOLE 40 MG TABLET PO (09:56)
[2023-12-03] MEDS: LACTULOSE 20 GM/30 ML UDC PO ×3 (09:56→17:43)
[2023-12-03] MEDS: BUPRENORPHINE/NALOXONE (*CRX) 4 MG/1 MG SL FILM 2 EACH SUBLINGUAL ×2 (09:56→20:29)
[2023-12-03 14:00] VITALS: BP 108/62; PULSE 75; RESP 14; TEMP 36.4; O2SAT 94
[2023-12-03 20:29] VITALS: BP 129/58; PULSE 79; RESP 16; TEMP 36.4; O2SAT 96
[2023-12-03] MEDS: SERTRALINE HCL 50 MG TABLET 100 MG PO (20:29)
[2023-12-04 05:17] LABS: Basophils Percent Auto 0.4 % (0.2-1.2); Eosinophils Absolute Auto 0.1 K/mm3 (0-0.3); Hematocrit 30.2 % (42.0-52.0); Immature Granulocyte Absolute 0.03 K/mm3 (0.00-0.031); Immature Granulocyte Percent A 1.2 % (0-0.5); Lymphocytes Absolute Auto 0.47 K/mm3 (0.9-3.2); Lymphocytes Percent Auto 18.9 % (18.3-44.2); Mean Corpuscular HGB Conc 33.1 g/dl (32-36); Mean Corpuscular Hemoglobin 34.5 pg (26-34); Mean Corpuscular Volume 104.1 fl (80-100); Mean Platelet Volume 10.3 fl (7.4-10.4); Monocytes Absolute Auto 0.3 K/mm3 (0.1-0.6); Monocytes Percent Auto 11.2 % (2.6-8.5); Neutrophils Absolute Auto 1.7 K/mm3 (1.3-6.7); Neutrophils Percent Auto 66.3 % (45.5-73.1); Platelet Count Result 70 k/mm3 (150-375); Red Cell Distribution Width 17.5 % (11.5-14.5); White Blood Count 2.5 K/mm3 (4.5-10.0)
[2023-12-04 05:29] LABS: Alanine Aminotransferase 25 U/L (6-50); Albumin Level 2.6 g/dL (3.5-5.1); Alkaline Phosphatase 90 U/L (38-126); Anion Gap 6 mmol/L (4-12); Aspartate Amino Transferase 57 U/L (17-59); Bilirubin,Total 1.6 mg/dL (0.2-1.3); Blood Urea Nitrogen 17 mg/dL (9-20); Calcium 8.1 mg/dL (8.4-10.2); Carbon Dioxide 29 mmol/L (22-30); Chloride 103 mmol/L (98-107); Estimated CRCL calculation 81 ml/min; Estimated Glomerular Filt Rate > 60; Glucose 97 mg/dL (65-110); Potassium 4.5 mmol/L (3.4-5.0); Sodium 138 mmol/L (137-145)
[2023-12-04] MEDS: IBUPROFEN 600 MG TABLET PO (05:54)
[2023-12-04 06:00] VITALS: BP 124/60; PULSE 76; RESP 18; TEMP 36.6; O2SAT 94
[2023-12-04] MEDS: PANTOPRAZOLE 40 MG TABLET PO (08:29)
[2023-12-04] MEDS: LACTULOSE 20 GM/30 ML UDC PO (08:29)
[2023-12-04 08:30] VITALS: RESP 18; O2SAT 94
[2023-12-04] MEDS: BUPRENORPHINE/NALOXONE (*CRX) 4 MG/1 MG SL FILM 2 EACH SUBLINGUAL (08:30)
--- NOTE | 2023-12-04 10:22 | PM.DS ---
DS: Admitting Diagnosis Discharge Date 12/04/23 Admitting Diagnosis 1) Displaced fracture 5th status post fall 2) Closed rib fractures 3) Acquired thrombocytopenia 4) Chronic liver disease and cirrhosis DS: Discharge Diagnosis Discharge Diagnosis (1) Displaced fracture of right femoral neck: Code(s): S72.001A - Fracture of unspecified part of neck of right femur, initial encounter for closed fracture Status: Acute Assessment and Plan: - s/p bipolar hemiarthroplasty per ortho. - Continue PT/OT treatment. - Continue WBAT per ORtho. - Awaiting Inpatient acute rehab placement. - Pain well controlled on Suboxone- continue - Ibuprofen PRN. 12/04/23: Date of discharge - OK to discharge per Orthopedics. Instructions are to follow up with Orthopedics 4-6 weeks with x-ray prior to appointment. Change med like stressing daily. Steri-Strips may be removed at 14 days. Patient may shower but may not soak. No Tylenol for pain given his Liver disease (2) Altered mental status: Code(s): R41.82 - Altered mental status, unspecified Status: Resolved Assessment and Plan: - Possibly secondary to hepatic encephalopathy. - Much improved. - Continue scheduled Lactulose TID. - Continue to monitor ammonia levels. - resolved (3) Acquired thrombocytopenia: Code(s): D69.6 - Thrombocytopenia, unspecified Status: Chronic Assessment and Plan: - Likely related to liver cirrhosis. - Continues to improve. - Continue to monitor levels. - No bleeding signs noted. - SCD's for DVT PPx. 12/04/23: Date of discharge: Pt with increase in platelets to 70K. No further s/s of bleeding. (4) GI bleed: Qualifiers: GI bleed type/associated pathology: unspecified gastrointestinal hemorrhage type Qualified Code(s): K92.2 - Gastrointestinal hemorrhage, unspecified Code(s): K92.2 - Gastrointestinal hemorrhage, unspecified Status: Acute Assessment and Plan: - FOB +ve inpatient. - Pt s/p hemiarthroplasty and would possibly not tolerate GI w/u currently. - Spouse bedside reports pt had a diagnostic colonoscopy within the last year and only colol polyps observed. - High risk for GI bleed with liver cirrhosis and thrombocytopenia. - Spouse prefers to f/u with pt GI at the [facility]. - Continue to monitor Hgb levels closely reviewed- stable 12/04/23: Date of discharge - H&H today are stable at 10.0/30.2. No further s/s of possible bleeding are evident. Pt did have positive occult blood while here. He chooses to follow up with GI at the [place] at [facility]. His is at the bedside and states she will help facilitate this follow up. (5) Anemia associated with acute blood loss: Code(s): D62 - Acute posthemorrhagic anemia Status: Resolved Assessment and Plan: - s/p hemiarthroplasty. - Hgb stable and trending up. - Iron panel noted with low Iron sats. - IV iron ordered. - Continue to monitor levels closely. (6) Generalized muscle weakness: Code(s): M62.81 - Muscle weakness (generalized) Status: Acute Assessment and Plan: - Deconditioning worsened by R. Hip surgery and possibly hepatic encephalopathy. - Continue PT/OT treatment. - Awaiting placement for acute inpatient rehab. - Fall precautions. 12/04/23: Date of discharge - Pt will have home health through the [place] to be set up independently by the pt and his spouse. They will have their PCP order PT/OT for pt. (7) Fall: Qualifiers: Encounter type: initial encounter Qualified Code(s): W19.XXXA - Unspecified fall, initial encounter Code(s): W19.XXXA - Unspecified fall, initial encounter Status: Acute Assessment and Plan: - Mechanical per patient statement and family. - Denies hitting head or LOC. - CT head: No intracranial hemorrhage, mass, or acute infarct. Atrophy and chronic white matter changes. - Continue PT/OT treatment. - Fall precautions. (8) Closed rib fracture
== END 2023-12-04 11:15 | disposition home or self-care (01) | DRG 522 ==
LOC: ANHED 11-26 02:53 → ANH2MED 11-26 04:02
PROVIDERS: Family Medicine; Internal Medicine; Nurse Practitioner Adult Health; Orthopaedic Surgery; Admitting Provider Internal Medicine; Emergency Provider Nurse Practitioner Family; Visit Provider Nurse Practitioner Adult Health
PROC: 0SRR01A Replacement of Right Hip Joint, Femoral Surface with Metal Synthetic Substitute, Uncemented, Open Approach (ICD-10-PCS; CPT 27125; principal; 2023-11-27 14:30)
DX: S72.011A Unspecified intracapsular fracture of right femur, initial encounter for closed fracture (principal); S22.31XA Fracture of one rib, right side, initial encounter for closed fracture; D62 Acute posthemorrhagic anemia; W01.0XXA Fall on same level from slipping, tripping and stumbling without subsequent striking against object, initial encounter; K70.30 Alcoholic cirrhosis of liver without ascites; F10.21 Alcohol dependence, in remission; D69.59 Other secondary thrombocytopenia; M62.81 Muscle weakness (generalized); K76.82 Hepatic encephalopathy; R19.5 Other fecal abnormalities; R45.89 Other symptoms and signs involving emotional state; F11.10 Opioid abuse, uncomplicated
CPT/HCPCS: 36415; 36430; 70450; 71110; 73502; 73521; 80053; 82140; 82274; 82607; 82728; 82746; 82948; 83540; 83550; 83735; 85025; 85055; 85610; 85730; 86850; 86900; 86901; 94762; 97110; 97116; 97161; 97166; 97530; 97535; 99285; A9270; C1776; J0171; J0330; J0690; J1100; J1170; J1756; J1885; J2270; J2371; J2405; J2704; J2795; J3010; J7050; J7120; P9034

== ENCOUNTER 2025-03-04 18:46 | Observation (INO) | payer OTHER, SELFPAY ==
[2025-03-04] VITALS (9 sets, daily range): BP systolic 113–121; BP diastolic 50–63; PULSE 68–81; RESP 14–24; TEMP 36.5–37.9; O2SAT 92–95; BMI 29.9
--- NOTE | ~2025-03-04 | CT_ITS ---
CT brain wo con HISTORY:Altered mental status COMPARISON: None. TECHNIQUE: Axial images were obtained of the head without intravenous contrast. FINDINGS: No acute intracranial hemorrhage, mass effect or midline shift. No extra-axial fluid collections. There is generalized atrophy.Visualized paranasal sinuses and mastoid air cells are clear. IMPRESSION: No acute intracranial hemorrhage or extra axial fluid collections. Generalized atrophy. All CT scans at this facility are performed using low dose modulation techniques as appropriate to perform exam including the following: automated exposure control; use of iterative reconstruction technique; adjustment of the mA and/or kV according to patient size (this includes techniques or standardized protocols for targeted exams where dose is matched to indication/reason for exam). Reviewed, dictated and finalized at location S. C PUBLISHER IMPRESSION: No acute intracranial hemorrhage or extra axial fluid collections. Generalized atrophy. All CT scans at this facility are performed using low dose modulation techniqu es as appropriate to perform exam including the following: automated exposure c ontrol; use of iterative reconstruction technique; adjustment of the mA and/or kV according to patient size (this includes techniques or standardized protocol s for targeted exams where dose is matched to indication/reason for exam).
--- NOTE | ~2025-03-04 | CT_ITS ---
CT chest abdomen pelvis w con HISTORY: ams, sob, ab pain . COMPARISON: None. TECHNIQUE: Axial images of the chest, abdomen and pelvis were obtained without and with infusion of 100 Isovue 300. FINDINGS: CT CHEST: The examination demonstrates airspace opacity within the right lower lobe suggestive of pneumonia. There are centrilobular emphysema bilaterally. No pleural effusions or pneumothorax. No pathologically enlarged hilar or mediastinal lymphadenopathy is seen. Heart is enlarged. The pulmonary artery and thoracic aorta are normal in caliber and patency. Osseous structures are intact. IMPRESSION: Scattered airspace opacity within the right lower lobe suggestive of pneumonia. CT abdomen and pelvis with contrast: Nodular contour of the liver suggestive of cirrhosis. No intrahepatic mass or ductal dilatation is evident. The gallbladder is unremarkable. Spleens enlarged. Splenic varices are noted. Pancreas is unremarkable. The adrenal glands are symmetric in size. The kidneys demonstrate symmetric uptake and excretion of contrast. No cystic mass is evident. There is no solid mass. There is no hydronephrosis. Evaluation of the stomach and bowel loops are limited due to lack of oral contrast. There are no bowel obstruction or acute appendicitis. There is colonic diverticulosis without evidence of acute diverticulitis. The bladder and rectum are normal. A small amount of free fluid in the pelvis. There is no significant retroperitoneal lymphadenopathy. The aorta, visceral vessels and renal arteries demonstrate normal caliber and patency. The lower thoracic and lumbar vertebrae are in normal alignment. IMPRESSION: Cirrhotic liver. Splenomegaly and splenic varices are noted. Colonic diverticulosis without evidence of acute diverticulitis. Small amount of free fluid in the pelvis. All CT scans at this facility are performed using low dose modulation techniques as appropriate to perform exam including the following: automated exposure control; use of iterative reconstruction technique; adjustment of the mA and/or kV according to patient size (this includes techniques or standardized protocols for targeted exams where dose is matched to indication/reason for exam) Reviewed, dictated and finalized at location S. RITY ASSOCIATE IMPRESSION: Scattered airspace opacity within the right lower lobe suggestive o f pneumonia. CT abdomen and pelvis with contrast: Nodular contour of the liver suggestive of cirrhosis. No intrahepatic mass or d uctal dilatation is evident. The gallbladder is unremarkable. Spleens enlarged. Splenic varices are noted. Pancreas is unremarkable. The adrenal glands are sy mmetric in size. The kidneys demonstrate symmetric uptake and excretion of contrast. No cystic m ass is evident. There is no solid mass. There is no hydronephrosis. Evaluation of the stomach and bowel loops are limited due to lack of oral contr ast. There are no bowel obstruction or acute appendicitis. There is colonic div erticulosis without evidence of acute diverticulitis. The bladder and rectum are normal. A small amount of free fluid in the pelvis. There is no significant retroperitoneal lymphadenopathy. The aorta, visceral vessels and renal arteries demonstrate normal caliber and p atency. The lower thoracic and lumbar vertebrae are in normal alignment. IMPRESSION: Cirrhotic liver. Splenomegaly and splenic varices are noted. Colonic diverticulosis without evidence of acute diverticulitis. Small amount of free fluid in the pelvis. All CT scans at this facility are performed using low dose modulation techniqu es as appropriate to perform exam including the following: automated exposure c ontrol; use of iterative reconstruction technique; adjustment of the mA and/or kV according to patient size (this includes techniques or standardized protocol s for targeted exams where dose is matched to indication/reason for exam)
--- NOTE | ~2025-03-04 | XR_ITS ---
XR chest 1V INDICATION:weakness . REFERENCE: None FINDINGS: A single AP of the chest demonstrates normal heart size. Bilateral lower lobe infiltrates are noted. There is no evidence of pneumothorax or pleural effusion. IMPRESSION: Bilateral lower lobe infiltrates. Reviewed, dictated and finalized at location S. [place]
--- NOTE | 2025-03-04 19:03 | ECG_ITS ---
Test Date: 2025-03-04 19:20:11 Measurements Intervals [place] Rate: 80 P: -14 HI: 143 QRS: 9 QRSD: 109 T: 16 QT: 415 QTc: 479 Interpretive Statements SINUS RHYTHM WITH MARKED SINUS ARRHYTHMIA No previous ECG available for comparison Electronically Signed On 03-04-2025 21:13:39 POWDER HAND by Kevan Hansen M.D.
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
[2025-03-04 19:41] LABS: Hematocrit 36.8 % (42.0-52.0); Hemoglobin 12.0 g/dL (14.0-18.0); Immature Granulocyte Percent A 0.4 % (0-0.5); Immature Platelet Fraction Pct 2.5 % (0.9-11.2); Lymphocytes Absolute Auto 0.72 K/mm3 (0.9-3.2); Mean Corpuscular HGB Conc 32.6 g/dl (32-36); Mean Corpuscular Hemoglobin 34.0 pg (26-34); Mean Corpuscular Volume 104.2 fl (80-100); Nucleated Red Blood Cells Absolute Auto 0.000 K/mm3 (0.0-0.012); Nucleated Red Blood Cells Perc 0.0 % (0.0-0.2); Platelet Count Result 63 k/mm3 (150-375); Red Blood Count 3.53 M/mm3 (4.6-6.20); White Blood Count 4.8 K/mm3 (4.5-10.0)
[2025-03-04 19:49] LABS: Ammonia 14 umol/L (9-30)
[2025-03-04 19:51] LABS: Alanine Aminotransferase 25 U/L (6-50); Albumin Level 3.4 g/dL (3.5-5.1); Alkaline Phosphatase 111 U/L (38-126); Anion Gap 8 mmol/L (4-12); Aspartate Amino Transferase 42 U/L (17-59); Bilirubin,Total 2.1 mg/dL (0.2-1.3); Blood Urea Nitrogen 27 mg/dL (9-20); Calcium 8.7 mg/dL (8.4-10.2); Carbon Dioxide 25 mmol/L (22-30); Chloride 103 mmol/L (98-107); Estimated CRCL calculation 67 ml/min; Estimated Glomerular Filt Rate > 60; Glucose 189 mg/dL (65-110); Potassium 3.9 mmol/L (3.4-5.0); Sodium 136 mmol/L (137-145); Total Protein 8.4 g/dL (6.3-8.2)
[2025-03-04 20:07] LABS: Add Urine Microscopic? YES; Appearance Urine Clear (Clear); Glucose Urine UA Negative (Negative); Leukocyte Esterase Ur Negative LEU/UL (Negative); Nitrate Urine Negative (Negative); Specific Grav Ur 1.034 (1.001-1.035)
[2025-03-04 20:08] LABS: Procalcitonin 0.2 ng/mL
[2025-03-04 20:15] LABS: Influenza A QL RT-PCR Negative (Negative); Influenza B QL RT-PCR Negative (Negative); RSV RNA, RT-PCR Negative (Negative); SARS-CoV-2 RNA PCR Negative (Negative)
[2025-03-04] MEDS: IBUPROFEN 400 MG TABLET 800 MG PO (20:19)
--- NOTE | 2025-03-04 20:41 | ED.GENADULT ---
HPI - General Adult General Chief complaint: Weakness Stated complaint: FALL, WEAKNESS SINCE SEPTEMBER Time Seen by Provider: 03/04/25 19:06 History of Present Illness HPI narrative: 74-year-old male with history of cirrhosis and reported declining health since September. Patient does live at home with his . states he has had increased confusion over the last few days. Patient states he does not feel well but denies any specific complaints. Patient denies any abdominal pain. Patient states he did have a fall on the bottom but denies striking head denies any loss of consciousness. Patient states the fall was secondary to increased generalized weakness. Pain patient states he does have a liver specialist but is not sure where he follows up. Patient's was here but she became tearful and stated she needed to leave. Patient does have a history of thrombocytopenia Related Data Home Medications ?Medication ?Instructions ?Recorded ?Confirmed ?Last Taken ?Type Suboxone 8 mg sublingual BID 11/26/23 12/27/23 Unknown History carvedilol 6.25 mg tablet (Coreg) 6.25 mg PO BID 11/26/23 12/27/23 Unknown History lactulose 20 gram/30 mL oral 30 ml PO TID 11/26/23 12/27/23 Unknown History solution omeprazole 20 mg capsule,delayed 20 mg PO DAILY 11/26/23 12/27/23 Unknown History release sertraline 100 mg tablet 100 mg PO QHS 11/26/23 12/27/23 Unknown History Allergies Allergy/AdvReac Type Severity Reaction Status Date / Time Interferons Allergy Other Verified 12/27/23 14:24 ribavirin Allergy Other Verified 12/27/23 14:24 Review of Systems Review of Systems: All systems reviewed & are unremarkable except as noted in HPI and below [facility] Social History Social History (Updated 12/27/23 @ 14:25 by Buffy Bhakta [facility]) Tobacco type: cigarettes Second hand tobacco smoke exposure: No Smoking end date: 04/24/06 Alcohol intake: never Substance use: never Do You Feel Safe in your Home?: Yes Lack of Transportation: No Lack of Food: Never True Current Housing: I Have Housing Concerned About Future Housing: No Difficulty Paying Gas/Electric Bills: No Difficulty Paying for Meds: No Currently Unemployed: No Education: Bachelor's Degree Difficulty w/ Childcare or Family Care: No Spiritual care concerns: No Exam Narrative: APPEARANCE: confused and ill-appearing HEAD: normocephalic, atraumatic. EYES: PERRLA/EOMI, conjunctivae clear. NOSE: Normal no drainage EARS:TMS clear with good light reflex. THROAT: Pharynx clear, no exudate. NECK: Supple. No adenopathy, no masses. RESPIRATORY: Airway patent, respirations nonlabored. Clear to auscultation bilaterally, no rales, rhonchi, wheezing. CARDIOVASCULAR: Regular rate and rhythm without murmurs rubs or gallops. ABDOMINAL: Soft, nontender, nondistended, normal bowel sounds MUSCULOSKELETAL: Moves all extremities. Strength/ROM intact, No edema, No calf tenderness. NEURO: Alert. Cranial nerves II through XII intact. Good gait. Good coordination SKIN: Warm, dry. Normal Color Course Vital Signs Vital signs: Vital Signs Temperature 100.3 F H 03/04/25 18:48 Pulse Rate 81 03/04/25 18:48 Respiratory Rate 18 03/04/25 18:48 Blood Pressure 117/63 03/04/25 18:48 Pulse Oximetry 93 03/04/25 18:48 Oxygen Delivery Nasal Cannula 03/04/25 18:48 Oxygen Flow Rate 2 03/04/25 18:48 Temperature 100.3 F H 03/04/25 18:48 Pulse Rate 72 03/04/25 20:59 Respiratory Rate 16 03/04/25 20:59 Blood Pressure 117/59 L 03/04/25 20:59 Pulse Oximetry 95 03/04/25 20:59 Oxygen Delivery Nasal Cannula 03/04/25 18:48 Oxygen Flow Rate 2 03/04/25 18:48 Medical Decision Making [facility] Narrative Medical decision making narrative: 74-year-old male present to the emergency department for evaluation for increased generalized weakness. Patient is currently afebrile with no leukocytosis and hemoglobin of 12.0. Patient does have platelets of 63k/mm3 which is similar to his baseline. Patient has no active bleeding. Patient's CMP is similar to his baseline. Patient does have an elevated lactic acid of 3.8. Patient's procalcitonin is not elevated. Urine was negative for infection. Patient's influenza RSV and COVID were negative. Head CT was negative for acute intracranial abnormality. CT chest was concerning for pneumonia. CT abdomen pelvis showed splenomegaly and splenic varices with chronic diverticulosis with no evidence of acute diverticulitis, small amount of free fluid in the pelvis and cirrhotic liver. Patient has blood cultures ordered patient was started on antibiotics for the pneumonia. Differential Diagnosis Differential Diagnosis: Subdural hematoma, subarachnoid hemorrhage, pneumonia, UTI, COVID, RSV, influenza Vital Signs Vital Signs: Vital Signs Temperature 100.3 F H 03/04/25 18:48 Pulse Rate 81 03/04/25 18:48 Respiratory Rate 18 03/04/25 18:48 Blood Pressure 117/63 03/04/25 18:48 Pulse Oximetry 93 03/04/25 18:48 Oxygen Delivery Nasal Cannula 03/04/25 18:48 Oxygen Flow Rate 2 03/04/25 18:48 Temperature 100.3 F H 03/04/25 18:48 Pulse Rate 72 03/04/25 20:59 Respiratory Rate 16 03/04/25 20:59 Blood Pressure 117/59 L 03/04/25 20:59 Pulse Oximetry 95 03/04/25 20:59 Oxygen Delivery Nasal Cannula 03/04/25 18:48 Oxygen Flow Rate 2 03/04/25 18:48 Lab Data Lab results reviewed: Yes I reviewed the patient's lab results. 03/04/25 19:28 03/04/25 19:28 Labs: Lab Results 03/04/25 Range/Units 19:28 WBC 4.8 (4.5-10.0) K/mm3 RBC 3.53 L (4.6-6.20) M/mm3 Hgb 12.0 L (14.0-18.0) g/dL Hct 36.8 L (42.0-52.0) % MCV 104.2 H (80-100) fl MCH 34.0 (26-34) pg MCHC 32.6 (32-36) g/dl RDW 16.7 H (11.5-14.5) % Plt Count 63 L (150-375) k/mm3 MPV 10.4 (7.4-10.4) fl Immature Gran % (Auto) 0.4 (0-0.5) % Neut % (Auto) 70.8 (45.5-73.1) % Lymph % (Auto) 15.1 L (18.3-44.2) % Saunders % (Auto) 11.8 H (2.6-8.5) % Eos % (Auto) 1.7 (0-4.4) % Baso % (Auto) 0.2 (0.2-1.2) % Lymph # (Auto) 0.72 L (0.9-3.2) K/mm3 Saunders # (Auto) 0.6 (0.1-0.6) K/mm3 Eos # (Auto) 0.1 (0-0.3) K/mm3 Baso # (Auto) 0.0 (0.0-0.1) K/mm3 Abs Immat Gran (auto) 0.02 (0.00-0.031) K/mm3 Absolute Neuts (auto) 3.4 (1.3-6.7) K/mm3 Absolute Nucleated RBC 0.000 (0.0-0.012) K/mm3 Nucleated RBC % 0.0 (0.0-0.2) % % Immature Plt Fraction 2.5 (0.9-11.2) % Sodium 136 L (137-145) mmol/L Potassium 3.9 (3.4-5.0) mmol/L Chloride 103 (98-107) mmol/L Carbon Dioxide 25 (22-30) mmol/L Anion Gap 8 (4-12) mmol/L BUN 27 H D (9-20) mg/dL Creatinine 0.76 (0.7-1.3) mg/dL Estim Creat Clear Calc 67 ml/min Estimated GFR > 60 (59 - ) Glucose 189 H (65-110) mg/dL Lactic Acid 3.8 H (0.7-2.0) mmol/L Calcium 8.7 (8.4-10.2) mg/dL Total Bilirubin 2.1 H (0.2-1.3) mg/dL AST 42 (17-59) U/L ALT 25 (6-50) U/L Alkaline Phosphatase 111 (38-126) U/L Ammonia 14 (9-30) umol/L Total Protein 8.4 H (6.3-8.2) g/dL Albumin 3.4 L (3.5-5.1) g/dL Procalcitonin 0.2 ng/mL Urine Color Dark yellow (Yellow) Urine Appearance Clear (Clear) Urine pH 5.5 (5.0-9.0) Ur Specific [place] 1.034 (1.001-1.035) Urine Protein Trace (Negative) mg/dL Urine Glucose (UA) Negative (Negative) mg/dL Urine Ketones Trace H (Negative) mg/dL Ur Blood (Man) Negative (Negative) Urine Nitrate Negative (Negative) Urine Bilirubin 1+ H (Negative) Urine Urobilinogen 2.0 H (<2.0) mg/dL Leukocyte Esterase Rfl Negative (Negative) JENNA/UL Urine RBC 0-2 (0-2) /hpf Urine WBC 0-5 (0-3) /hpf Ur Squamous Epith Cells None seen (Few) /hpf Urine Bacteria None seen /hpf Urine Casts 3-5 Influenza A (RT-PCR) Negative (Negative) Influenza B (RT-PCR) Negative (Negative) RSV (RT-PCR) Negative (Negative) SARS-CoV-2 RNA (RT-PCR) Negative (Negative) Imaging Data Attestation: I personally reviewed and interpreted this imaging study as follows: My impression: Chest x-ray: Pneumonia Radiologist's impression: Impressions Chest X-Ray 03/04/25 19:47 IMPRESSION: Bilateral lower lobe infiltrates. Head CT 03/04/25 20:16 IMPRESSION: No acute intracranial hemorrhage or extra axial fluid collections. Generalized atrophy. All CT scans at this facility are performed using low dose modulation techniques as appropriate to perform exam including the following: automated exposure control; use of iterative reconstruction technique; adjustment of the mA and/or kV according to patient size (this includes techniques or standardized protocols for targeted exams where dose is matched to indication/reason for exam). Chest/Abdomen/Pelvis CT 03/04/25 20:18 IMPRESSION: Scattered airspace opacity within the right lower lobe suggestive of pneumonia. CT abdomen and pelvis with contrast: Nodular contour of the liver suggestive of cirrhosis. No intrahepatic mass or ductal dilatation is evident. The gallbladder is unremarkable. Spleens enlarged. Splenic varices are noted. Pancreas is unremarkable. The adrenal glands are symmetric in size. The kidneys demonstrate symmetric uptake and excretion of contrast. No cystic mass is evident. There is no solid mass. There is no hydronephrosis. Evaluation of the stomach and bowel loops are limited due to lack of oral contrast. There are no bowel obstruction or acute appendicitis. There is colonic diverticulosis without evidence of acute diverticulitis. The bladder and rectum are normal. A small amount of free fluid in the pelvis. There is no significant retroperitoneal lymphadenopathy. The aorta, visceral vessels and renal arteries demonstrate normal caliber and patency. The lower thoracic and lumbar vertebrae are in normal alignment. IMPRESSION: Cirrhotic liver. Splenomegaly and splenic varices are noted. Colonic diverticulosis without evidence of acute diverticulitis. Small amount of free fluid in the pelvis. All CT scans at this facility are performed using low dose modulation techniques as appropriate to perform exam including the following: automated exposure control; use of iterative reconstruction technique; adjustment of the mA and/or kV according to patient size (this includes techniques or standardized protocols for targeted exams where dose is matched to indication/reason for exam) ECG Data EKG #1: Attestation: I personally reviewed and interpreted this ECG as follows: EKG Interpretation: normal rate, sinus rhythm, no ectopy, non-specific ST changes, normal QRS, normal QT and NL axis Discharge Plan Discharge Clinical Impression: AMS (altered mental status), Pneumonia Patient Disposition: Still a Patient Condition: Serious Patient Language: Persian Prescriptions: No Action carvedilol [Coreg] 6.25 mg Tablet 6.25 mg PO BID sertraline 100 mg Tablet 100 mg PO QHS omeprazole 20 mg Capsule,Delayed Release(Dr/Ec) 20 mg PO DAILY lactulose 20 gram/30 mL Solution 30 ml PO TID Suboxone 8 mg sublingual BID amoxicillin 500 mg tablet 500 mg PO ONCE Qty: 4 0RF Rx Instructions: TAKE 4 TABLETS ONE HOUR PRIOR TO DENTAL PROCEDURE. amoxicillin 500 mg tablet 500 mg PO ONCE Qty: 4 0RF Rx Instructions: Take 4 tablets 1 hour prior to procedure. amoxicillin 500 mg tablet 500 mg PO ONCE Qty: 4 0RF Rx Instructions: Take 4 tablets 1 hour prior to procedure. Follow-up/Referrals: PHYSICIAN NOT ON STAFF,NONSTAFF [Primary Care Provider]
[2025-03-04] MEDS: cefTRIAXone 1 GM in SODIUM CHLORIDE 0.9% IV 50 ML 100 ML IVPB (20:45)
[2025-03-04] MEDS: LACTATED RINGERS 1,000 ML 999 ML IV CONT ×2 (20:46)
[2025-03-04] MEDS: AZITHROMYCIN IV 500 MG in SODIUM CHLORIDE 0.9% IV 250 ML IVPB (21:02)
--- NOTE | 2025-03-04 22:06 | P.HP_ITS ---
H&P: HPI History of Present Illness Date/Time: 03/04/25 22:06 Chief Complaint: Decline in function Narrative: 74-year-old male [place] patient with a past medical history of alcoholic cirrhosis, COPD, depression and essential hypertension who presented to the ER from home via EMS due to increased weakness. The patient is a poor historian source of information is also a from review of ER records and ER physician report. Patient's had told staff that the patient has had worsening condition since September when he had his teeth extracted. He has been progressively weaker. He did not hit his head or lose consciousness. He did land on his butt. The patient denies any chest pain or shortness of breath. He does report about 1 week of cough productive of white sputum. He denies any fevers or chills. He takes lactulose twice a day for goal of having at least 2 bowel movements today. He denies any nausea or vomiting. He reports that he has been nodding off frequently. He reports that his has been ill with cough symptoms recently. He states that he has received his flu COVID and pneumonia vaccine. He denies any chest pain or orthopnea. He denies any nausea or vomiting. He denies any black or bloody stools. Review of Systems 2 Review of Systems: Review of systems limited as patient is a poor historian. 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 She he is a and is on disability. He states that he has 70% disabled by the [place]. he used to smoke 1 pack per day for about 32 years. He quit smoking in 2006. He was an alcoholic for many years but quit drinking alcohol in 2022. He denies illicit substance use. Code status: DNR/DNI per nursing documentation Surrogate decision maker: Tobacco type: cigarettes Second hand tobacco smoke exposure: No Smoking end date: 04/24/06 Alcohol intake: former Substance use: never Do You Feel Safe in your Home?: Yes Lack of Transportation: No Lack of Food: Never True Current Housing: I Have Housing Concerned About Future Housing: No Difficulty Paying Gas/Electric Bills: No Difficulty Paying for Meds: No Currently Unemployed: No Education: Bachelor's Degree Difficulty w/ Childcare or Family Care: No Spiritual care concerns: No Meds Home Medications and Allergies Home Medications ?Medication ?Instructions ?Recorded ?Confirmed ?Type Suboxone 8 mg sublingual BID 11/26/23 03/05/25 History carvedilol 6.25 mg tablet (Coreg) 6.25 mg PO BID 11/2503/05/25 History lactulose 20 gram/30 mL oral 30 ml PO BID 11/26/2304/17 History solution sertraline 100 mg tablet 100 mg PO QHS 11/26/2303/05 History Allergies Allergy/AdvReac Type Severity Reaction Status Date / Time Interferons AdvReac Severe AMS Verified 03/04/25 23:46 ribavirin AdvReac Severe AMS Verified 03/04/25 23:46 Vital Signs Vital Signs - 24 hr 03/04/25 18:48 03/04/25 18:57 03/04/25 19:01 Temperature 100.3 F H Pulse Rate 81 75 78 Respiratory Rate 18 15 16 Blood Pressure 117/63 117/63 121/61 Pulse Oximetry 93 93 95 Oxygen Delivery Nasal Cannula Oxygen Flow Rate 2 03/04/25 20:59 Temperature Pulse Rate 72 Respiratory Rate 16 Blood Pressure 117/59 L Pulse Oximetry 95 Oxygen Delivery Oxygen Flow Rate Exam 2 Narrative: Weight 81.6 kg BMI 28.2 Const: Other: No acute distress, chronically ill-appearing HENMT: Other: Edentulous in upper and lower jaw, mucous membranes are tacky, no oral pharyngeal erythema, head is normocephalic atraumatic, nasal cannula in place Neck: Other: No JVD, no lymphadenopathy Resp: Other: Coarse crackles at the right upper and the lower lobe, no increased work of breathing Cardio: Other: Regular rate, regular rhythm, 2+ bilateral radial pedal pulses, no JVD GI: Other: Soft, nontender, nondistended, positive bowel sounds Skin: Other: Generalized pallor, mild jaundice Neuro: Other: Alert orient x4, speech is clear but extremely slow, the no localizing neurologic deficits noted during the course of conversation Extrem: Other: No cyanosis or edema, clubbing of nail beds of the hands Psych: Other: Cooperative, blunted flat affect, poor insight H&P: Results Labs Labs: Laboratory Tests 03/04/25 19:28 03/04/25 19:28 03/04/25 03/04/25 19:28 21:54 WBC 4.8 RBC 3.53 L Hgb 12.0 L Hct 36.8 L MCV 104.2 H MCH 34.0 MCHC 32.6 RDW 16.7 H Plt Count 63 L MPV 10.4 Immature Gran % (Auto) 0.4 Neut % (Auto) 70.8 Lymph % (Auto) 15.1 L Andrews % (Auto) 11.8 H Eos % (Auto) 1.7 Baso % (Auto) 0.2 Lymph # (Auto) 0.72 L Andrews # (Auto) 0.6 Eos # (Auto) 0.1 Baso # (Auto) 0.0 Abs Immat Gran (auto) 0.02 Absolute Neuts (auto) 3.4 Absolute Nucleated RBC 0.000 Nucleated RBC % 0.0 % Immature Plt Fraction 2.5 Sodium 136 L Potassium 3.9 Chloride 103 Carbon Dioxide 25 Anion Gap 8 BUN 27 H D Creatinine 0.76 Estim Creat Clear Calc 67 Estimated GFR > 60 Glucose 189 H Lactic Acid 3.8 H 3.7 H Calcium 8.7 Total Bilirubin 2.1 H AST 42 ALT 25 Alkaline Phosphatase 111 Ammonia 14 Total Protein 8.4 H Albumin 3.4 L Procalcitonin 0.2 Urine Color Dark yellow Urine Appearance Clear Urine pH 5.5 Ur Specific [place] 1.034 Urine Protein Trace Urine Glucose (UA) Negative Urine Ketones Trace H Ur Blood (Man) Negative Urine Nitrate Negative Urine Bilirubin 1+ H Urine Urobilinogen 2.0 H Leukocyte Esterase Rfl Negative Urine RBC 0-2 Urine WBC 0-5 Ur Squamous Epith Cells None seen Urine Bacteria None seen Urine Casts 3-5 Influenza A (RT-PCR) Negative Influenza B (RT-PCR) Negative RSV (RT-PCR) Negative SARS-CoV-2 RNA (RT-PCR) Negative Impressions Chest X-Ray 03/04/25 19:47 IMPRESSION: Bilateral lower lobe infiltrates. Head CT 03/04/25 20:16 IMPRESSION: No acute intracranial hemorrhage or extra axial fluid collections. Generalized atrophy. All CT scans at this facility are performed using low dose modulation techniques as appropriate to perform exam including the following: automated exposure control; use of iterative reconstruction technique; adjustment of the mA and/or kV according to patient size (this includes techniques or standardized protocols for targeted exams where dose is matched to indication/reason for exam). Chest/Abdomen/Pelvis CT 03/04/25 20:18 IMPRESSION: Scattered airspace opacity within the right lower lobe suggestive of pneumonia. CT abdomen and pelvis with contrast: Nodular contour of the liver suggestive of cirrhosis. No intrahepatic mass or ductal dilatation is evident. The gallbladder is unremarkable. Spleens enlarged. Splenic varices are noted. Pancreas is unremarkable. The adrenal glands are symmetric in size. The kidneys demonstrate symmetric uptake and excretion of contrast. No cystic mass is evident. There is no solid mass. There is no hydronephrosis. Evaluation of the stomach and bowel loops are limited due to lack of oral contrast. There are no bowel obstruction or acute appendicitis. There is colonic diverticulosis without evidence of acute diverticulitis. The bladder and rectum are normal. A small amount of free fluid in the pelvis. There is no significant retroperitoneal lymphadenopathy. The aorta, visceral vessels and renal arteries demonstrate normal caliber and patency. The lower thoracic and lumbar vertebrae are in normal alignment. IMPRESSION: Cirrhotic liver. Splenomegaly and splenic varices are noted. Colonic diverticulosis without evidence of acute diverticulitis. Small amount of free fluid in the pelvis. EKG:Test Date: 2025-03-04 19:20:11 Measurements Intervals [place] Rate: 80 P: -14 [place]: 143 QRS: 9 QRSD: 109 T: 16 QT: 415 QTc: 479 Interpretive Statements SINUS RHYTHM WITH MARKED SINUS ARRHYTHMIA No previous ECG available for comparison Assessment and Plan Assessment and plan (1) Pneumonia: Qualifiers: Laterality: right Lung location: lower lobe of lung Pneumonia type: d ue to unspecified organism Qualified Code(s): J18.9 - Pneumonia, unspecified organism Code(s): J18.9 - Pneumonia, unspecified organism Status: Acute (2) AMS (altered mental status): Qualifiers: Altered mental status type: disorientation Qualified Code(s): R41.0 - Disorientation, unspecified Code(s): R41.82 - Altered mental status, unspecified Status: Acute (3) Alcoholic cirrhosis of liver with ascites: Code(s): K70.31 - Alcoholic cirrhosis of liver with ascites Status: Acute (4) Acquired thrombocytopenia: Code(s): D69.6 - Thrombocytopenia, unspecified Status: Chronic (5) Generalized weakness: Code(s): R53.1 - Weakness Status: Acute Plan Patient has right lower lobe pneumonia. Patient does not have any documented episodes of hypoxia in the chart so it is unclear if he actually had hypoxia or if he was placed on oxygen for comfort. Will wean oxygen and re-evaluate. Patient was started on empiric antibiotic therapy with Rocephin and azithromycin. Will send urine for Legionella and pneumococcal antigen. Blood cultures have been obtained and are pending. COVID flu and RSV PCR were all negative. Patient does have history of tobacco use in likely underlying COPD. He does not have significant wheezing at this time but will place patient on DuoNebs a and Acapella for pulmonary toilet. The patient is having generalized weakness and reported confusion by ER staff. It is unclear if the patient was actually confused at home the patient is currently alert oriented x4, although he definitely has a delayed response to stimulus and the seems somewhat encephalopathic but no confusion. He is just generally a poor historian. He does have cirrhosis but no evidence of hyperammonemia to suggest decompensated hepatic encephalopathy. Will continue home lactulose will and will titrate for goal stools of 2-3 stools a day. Will continue home Suboxone for alcohol abstinence. Will continue and sertraline for history of depression. The patient reports that his mood is stable in relatively good. He denies depression. Patient has been admitted as observation status. MEDICAL DECISION MAKING NARRATIVE -Spoke with the ED provider in detail regarding patient's evaluation, workup and management -Patient seen and examined at bedside -Collaborated with patient's nurse at the bedside in detail and addressed all concerns -Labs, electrolytes, radiology, investigations and test results personally reviewed and interpreted unless otherwise specified -ED/Consult/Nursing/Ancilliary notes on the chart reviewed and appreciated -Spoke with patient at bedside and diagnosis and plan of care was discussed. All questions answered. Quality VTE Prophylaxis VTE prophylaxis: mechanical ordered (SCDs) Hospitalist MIPS Advance Care Plan I have confirmed that the patient's Advanced Care Plan is present, code status is documented, or surrogate decision maker is listed in patient medical record.: Yes Medication Reconciliation I have utilized all available resources to obtain, update and review the patients current medications (includes all prescriptions, OTC, herbals, cannabis, and nutritional supplements).: Yes
--- NOTE | 2025-03-04 22:18 | WPCEDHO ---
ED Hand Off Checklist All vitals saved: Yes IV Site documented: Yes All med administrations documented: Yes Triage Note Triage Note Pt arrives via [facility] from 03/04/25 18:48 home. Pts reports that he has had a decline in condition since September when he had his teeth removed. Pt reports that he fell onto his bottom today; pt did not hit his head or have a LOC. Pt denies being in any pain right now. Pt reports that he is just weak. Pt states that he is not on O2 at home but is currently on 2L via ems. Allergies Interferons Allergy (Verified 12/27/23 14:24) Other ribavirin Allergy (Verified 12/27/23 14:24) Other Administered/Completed Medications Discontinued Medications Ceftriaxone Sodium 1 gm/ (Sodium Chloride) 50 mls @ 100 mls/hr IVPB ONCE STA Stop: 03/04/25 20:44 Last Infusion: 03/04/25 21:02 Dose: Infused Documented By: Admin: 03/04/25 20:45 Dose: 100 mls/hr Documented By: NAYANA Azithromycin 500 mg/ Sodium (Chloride) 250 mls @ 250 mls/hr IVPB ONCE STA Stop: 03/04/25 21:14 Last Infusion: 03/04/25 22:16 Dose: Infused Documented By: Admin: 03/04/25 21:02 Dose: 250 mls/hr Documented By: NAYANA Lactated Ringer's (Lr - Lactated Ringers Iv) 1,000 mls @ 999 mls/hr IV CONT .Q1H1M STA Stop: 03/04/25 21:29 Last Infusion: 03/04/25 22:16 Dose: Infused Documented By: Admin: 03/04/25 20:46 Dose: 999 mls/hr Documented By: NAYANA Lactated Ringer's (Lr - Lactated Ringers Iv) 1,000 mls @ 999 mls/hr IV CONT .Q1H1M STA Stop: 03/04/25 21:29 Last Infusion: 03/04/25 22:16 Dose: Infused Documented By: Admin: 03/04/25 20:46 Dose: 999 mls/hr Documented By: NAYANA Ibuprofen (Ibuprofen 400 Mg Tablet) 800 mg PO ONCE STA Stop: 03/04/25 19:45 Last Admin: 03/04/25 20:19 Dose: 800 mg Documented By: NAYANA Notes 03/04/25 19:40 Nurse Note by Tierra Gallagher Pts arrived to the ED and walked into the room and said did you hear how I was a b. Per EMS, pt is upset about the decline of her and got into a screaming match with EMS. Shortly after her arrival, pts spouse completely broke down hysterically crying d/t exhaustion. Please do not send him home. I canont take care of him anymore, he is too weak. Pts was advised that she can go home and we will call her with an update about her and if we have any further questions. Initialized on 03/04/25 19:40 - END OF NOTE Interventions/Assessments IV / Saline Lock, Insert Start: 03/04/25 18:44 Freq: Status: Active Protocol: Document 03/04/25 19:35 NAYANA (Rec: 03/04/25 19:36 DJW [id number]) IV Assessment Peripheral Access Right Medial Forearm IV Catheter Access Initiated IV Insertion Date 03/04/25 IV Insertion Time 19:36 Catheter Gauge 20 IV Insertion 1 Attempts IV Site Assessment WNL IV Care and WNL Maintenance Peripheral Access Left Antecubital IV Catheter Access Initiated IV Insertion Date 03/04/25 IV Insertion Time 19:35 Catheter Gauge 20 IV Insertion 1 Attempts IV Site Assessment WNL IV Care and WNL Maintenance PA: Cardiovascular Assessment Start: 03/04/25 18:44 Freq: Status: Active Protocol: Document 03/04/25 18:48 KIMBERLY (Rec: 03/04/25 19:02 KIMBERLY [id number]) Cardiovascular Assessment Cardiovascular None Symptoms Skin Description Normal Color,Cool Heart Sounds Normal Jugular Vein None Distention PA: Neurological Assessment Start: 03/04/25 18:44 Freq: Status: Active Protocol: Document 03/04/25 18:48 KIMBERLY (Rec: 03/04/25 19:02 KIMBERLY [id number]) [place] Coma Scale Eyes Open Verbal Oriented and Alert Motor Follows Commands [place] Coma Total 15 Score Neurological Assessment Level of Alert,Awake Consciousness Arousable to Verbal Orientation Oriented to Person,Oriented to Place,Disoriented to Time Neurological Confusion,Frequent Falls,Weakness, General Symptoms Hallucination Type None Unable to Redirect No Behavior Behavior Cooperative Patient Able to Comprehend Comprehension Memory Description Usp Impaired,Short Term Impaired Ability to Maintain Unable to Assess Balance Facial Symmetry Symmetrical Speech Pattern Delayed,Slurred Ability to Swallow Unable to Assess Tongue Position Midline Last Vital Signs Temperature 100.3 F H 03/04/25 18:48 Pulse Rate 72 03/04/25 20:59 Respiratory Rate 16 03/04/25 20:59 Pulse Oximetry 95 03/04/25 20:59 Blood Pressure 117/59 L 03/04/25 20:59 Blood Pressure Mean 78 03/04/25 20:59 Blood Pressure Position Sitting 03/04/25 20:59 Oxygen Delivery Nasal Cannula 03/04/25 18:48 Oxygen Flow Rate 2 03/04/25 18:48 Weight 81.6 kg 03/04/25 18:48 Last Result - Abnormals Only RBC 3.53 M/mm3 (4.6-6.20) L 03/04/25 19:28 Hgb 12.0 g/dL (14.0-18.0) L 03/04/25 19:28 Hct 36.8 % (42.0-52.0) L 03/04/25 19:28 MCV 104.2 fl (80-100) H 03/04/25 19:28 RDW 16.7 % (11.5-14.5) H 03/04/25 19:28 Plt Count 63 k/mm3 (150-375) L 03/04/25 19:28 Lymph % (Auto) 15.1 % (18.3-44.2) L 03/04/25 19:28 [place] % (Auto) 11.8 % (2.6-8.5) H 03/04/25 19:28 Lymph # (Auto) 0.72 K/mm3 (0.9-3.2) L 03/04/25 19:28 Sodium 136 mmol/L (137-145) L 03/04/25 19:28 BUN 27 mg/dL (9-20) H D 03/04/25 19:28 Glucose 189 mg/dL (65-110) H 03/04/25 19:28 Lactic Acid 3.7 mmol/L (0.7-2.0) H 03/04/25 21:54 Total Bilirubin 2.1 mg/dL (0.2-1.3) H 03/04/25 19:28 Total Protein 8.4 g/dL (6.3-8.2) H 03/04/25 19:28 Albumin 3.4 g/dL (3.5-5.1) L 03/04/25 19:28 Urine Ketones Trace mg/dL (Negative) H 03/04/25 19:28 Urine Bilirubin 1+ (Negative) H 03/04/25 19:28 Urine Urobilinogen 2.0 mg/dL (<2.0) H 03/04/25 19:28 Most Recent Suicide Severity Rating Suicide Severity Rating NO RISK INDICATED 03/04/25 18:48
[2025-03-04] MEDS: LACTATED RINGERS 500 ML 999 ML IV CONT (22:26)
--- NOTE | 2025-03-04 23:22 | ADMGEN ---
This patient, Israel Corral, was admitted to [facility] Surg Room 307-02. Patient/family oriented to hospital policies and general routines including ID bracelet, bed and alarms, visiting hours, pain management, procedures, bathroom and other care routines, personal items, smoking policy, room service/diet, and visiting hours. Information on how to activate the Rapid Response Team has been discussed. Patient/Family are encouraged to report perceived risks to care and to ask questions if they do not understand what they are told or what they should do.
[2025-03-05] VITALS (17 sets, daily range): BP systolic 110–124; BP diastolic 57–60; PULSE 58–96; RESP 16–18; TEMP 35.9–37.1; O2SAT 90–95; BMI 29.4
[2025-03-05] MEDS: BUPRENORPHINE HCL (*CRX) 8 MG SUBLINGUAL TABLET SUBLINGUAL ×3 (01:44→17:16)
[2025-03-05] MEDS: IPRATROPIUM 0.5 MG/ALBUTEROL SULFATE 2.5 MG (BASE) AMPUL.NEB 3 ML INHALATION ×4 (02:10→20:39)
--- NOTE | 2025-03-05 07:59 | P.PNIM_ITS ---
Progress Note: A&P Assessment and Plan (1) Pneumonia: Qualifiers: Laterality: right Lung location: lower lobe of lung Pneumonia type: due to unspecified organism Qualified Code(s): J18.9 - Pneumonia, unspecified organism Code(s): J18.9 - Pneumonia, unspecified organism Status: Acute Assessment and Plan: - presented with generalized weakness, ?hypoxia although patient is on RA this AM with on documented hypoxia - CT Chest with scattered airspace opacity within the RLL* - no leukocytosis - t max 100.3, procal 0.2 - continue Rocephin/azithromycin - follow-up blood cultures, strep/legionella antigens (2) AMS (altered mental status): Qualifiers: Altered mental status type: disorientation Qualified Code(s): R41.0 - Disorientation, unspecified Code(s): R41.82 - Altered mental status, unspecified Status: Acute Assessment and Plan: -patient reported increased confusion, but currently alert and oriented x4 - noted to have some delayed responsiveness in ED - ammonia 14, continue lactulose - may be secondary to pneumonia - monitor mental status - patient reports improvement this AM (3) Alcoholic cirrhosis of liver with ascites: Code(s): K70.31 - Alcoholic cirrhosis of liver with ascites Status: Acute Assessment and Plan: - ammonia 14 -continue home lactulose - continue home Suboxone for alcohol abstinence (4) Acquired thrombocytopenia: Code(s): D69.6 - Thrombocytopenia, unspecified Status: Chronic Assessment and Plan: - Plts 61 due to history of cirrhosis - hold chemical DVT prophylaxis - stable - monitor CBC (5) Generalized weakness: Code(s): R53.1 - Weakness Status: Acute Assessment and Plan: - in setting of PNA, general decline due to cirrhosis - PT/OT, dietitian consulted (6) Lactic acidosis: Code(s): E87.20 - Acidosis, unspecified Status: Acute Assessment and Plan: - initial LA 3.7. Recieved 30cc/kg bolus in ED, repeat LA 3.8 - no tachycardia or hypotension - suspect related to cirrhosis, less likely sepsis - repeat LA pending Plan DVT prophylaxis: SCDs Code status: DNR Dispo: TBD pending hospital course Subjective Date/time seen: 03/05/25 07:59 Interval history: 74-year-old male [place] patient with a past medical history of alcoholic cirrhosis, COPD, depression and essential hypertension who presented to the ER from home via EMS due to increased weakness. Patient seen and examined at bedside. Patient alert and oriented x4. Feeling better this AM. Still with mild cough and weakness. Review of Systems Review of Systems: All systems reviewed & are unremarkable except as noted in HPI and below Exam Narrative: General: NAD, appears deconditioned Eyes: EOMI ENT: neck supple Cardiovascular: Regular rate and rhythm Respiratory: Clear to auscultation, respirations even and unlabored on RA Gastrointestinal: Soft, non tender Genitourinary: no suprapubic tenderness Musculoskeletal: No edema Skin: warm, dry Neuro: Alert and oriented x4, somewhat slow to respond. Strength 5/5 in BUE/BLEs. Psych: Mood appropriate Objective Data Vital Signs Vital Signs: Vital Signs - 24 hr 03/04/25 18:48 03/04/25 18:57 03/04/25 19:01 Temperature 100.3 F H Pulse Rate 81 75 78 Respiratory Rate 18 15 16 Blood Pressure 117/63 117/63 121/61 Pulse Oximetry 93 93 95 Oxygen Delivery Nasal Cannula Oxygen Flow Rate 2 03/04/25 20:59 03/04/25 21:01 03/04/25 21:31 Temperature Pulse Rate 72 71 73 Respiratory Rate 16 23 H 24 H Blood Pressure 117/59 L 117/59 L 113/59 L Pulse Oximetry 95 93 92 Oxygen Delivery Oxygen Flow Rate 03/04/25 22:01 03/04/25 23:14 03/04/25 23:31 Temperature 97.7 F Pulse Rate 73 75 68 Respiratory Rate 14 16 16 Blood Pressure 116/60 121/62 119/50 L Pulse Oximetry 94 95 95 Oxygen Delivery Oxygen Flow Rate 03/05/25 00:17 03/05/25 02:11 03/05/25 02:24 Temperature Pulse Rate 89 96 Respiratory Rate 18 18 Blood Pressure Pulse Oximetry 95 Oxygen Delivery Nasal Cannula Oxygen Flow Rate 2 03/05/25 02:25 03/05/25 05:34 03/05/25 05:57 Temperature 98.7 F Pulse Rate 58 L Respiratory Rate 16 Blood Pressure 124/57 L Pulse Oximetry 91 94 94 Oxygen Delivery Nasal Cannula Room Air Oxygen Flow Rate 2 03/05/25 07:33 Temperature Pulse Rate 65 Respiratory Rate 18 Blood Pressure Pulse Oximetry Oxygen Delivery Oxygen Flow Rate Intake/Output Intake/Output: Intake & Output 03/02/25 03/03/25 03/04/2525 23:59 23:59 23:59 23:59 Intake Total 2800 275 Output Total 100 460 Balance 2700 -185 Meds/Results Medications: Active Medications Generic Name Dose Route Start Last Admin Trade Name Freq PRN Reason Stop Dose Admin Albuterol/Ipratropium 3 ml 03/05/25 02:00 03/05/25 07:33 Ipratropium 0.5 Mg/Albuterol Sulfate 2.5 Mg (Base) Ampul.Neb 3 Ml INHALATION 3 ml Q6HRT [facility] Administration Buprenorphine HCl 8 mg 03/05/25 01:00 03/05/25 01:44 Buprenorphine Hcl (*Crx) 8 Mg Sublingual Tablet SUBLINGUAL 04/04/25 00:59 8 mg BID [facility] Administration Calcium Carbonate 200 mg 03/04/25 22:35 Calcium Carbonate (Tums) 500 Mg (200 Mg Elemental) PO Q6H PRN Indigestion Carvedilol 6.25 mg 03/05/25 09:00 Carvedilol 6.25 Mg Tablet PO Q12HR [facility] Ceftriaxone Sodium 1 gm/ 50 mls @ 100 mls/hr 03/05/25 20:00 Sodium Chloride IVPB Q24H [facility] Azithromycin 500 mg/ Sodium 250 mls @ 250 mls/hr 03/05/25 21:00 Chloride IVPB 03/08/25 21:59 Q24H [facility] Ibuprofen 400 mg 03/04/25 21:13 Ibuprofen 400 Mg Tablet PO Q6H PRN Mild Pain (1-3) or Fever Lactulose 20 gm 03/05/25 09:00 Lactulose 20 Gm/30 Ml Udc PO BID [facility] Ondansetron HCl 4 mg 03/04/25 22:34 Ondansetron Inj 4 Mg/2 Ml Vial IV PUSH Q6H PRN Nausea And Vomiting Sertraline HCl 100 mg 03/05/25 21:00 Sertraline Hcl 50 Mg Tablet PO QHS [facility] Radiology Results: ITS Impressions Chest X-Ray 03/04/25 19:47 IMPRESSION: Bilateral lower lobe infiltrates. Head CT 03/04/25 20:16 IMPRESSION: No acute intracranial hemorrhage or extra axial fluid collections. Generalized atrophy. All CT scans at this facility are performed using low dose modulation techniques as appropriate to perform exam including the following: automated exposure control; use of iterative reconstruction technique; adjustment of the mA and/or kV according to patient size (this includes techniques or standardized protocols for targeted exams where dose is matched to indication/reason for exam). Chest/Abdomen/Pelvis CT 03/04/25 20:18 IMPRESSION: Scattered airspace opacity within the right lower lobe suggestive of pneumonia. CT abdomen and pelvis with contrast: Nodular contour of the liver suggestive of cirrhosis. No intrahepatic mass or ductal dilatation is evident. The gallbladder is unremarkable. Spleens enlarged. Splenic varices are noted. Pancreas is unremarkable. The adrenal glands are symmetric in size. The kidneys demonstrate symmetric uptake and excretion of contrast. No cystic mass is evident. There is no solid mass. There is no hydronephrosis. Evaluation of the stomach and bowel loops are limited due to lack of oral contrast. There are no bowel obstruction or acute appendicitis. There is colonic diverticulosis without evidence of acute diverticulitis. The bladder and rectum are normal. A small amount of free fluid in the pelvis. There is no significant retroperitoneal lymphadenopathy. The aorta, visceral vessels and renal arteries demonstrate normal caliber and patency. The lower thoracic and lumbar vertebrae are in normal alignment. IMPRESSION: Cirrhotic liver. Splenomegaly and splenic varices are noted. Colonic diverticulosis without evidence of acute diverticulitis. Small amount of free fluid in the pelvis. All CT scans at this facility are performed using low dose modulation techniques as appropriate to perform exam including the following: automated exposure control; use of iterative reconstruction technique; adjustment of the mA and/or kV according to patient size (this includes techniques or standardized protocols for targeted exams where dose is matched to indication/reason for exam) Labs Labs: Laboratory Results - last 24 hr 03/04/25 03/04/25 19:28 21:54 WBC 4.8 RBC 3.53 L Hgb 12.0 L Hct 36.8 L MCV 104.2 H MCH 34.0 MCHC 32.6 RDW 16.7 H Plt Count 63 L MPV 10.4 Immature Gran % (Auto) 0.4 Neut % (Auto) 70.8 Lymph % (Auto) 15.1 L [place] % (Auto) 11.8 H Eos % (Auto) 1.7 Baso % (Auto) 0.2 Lymph # (Auto) 0.72 L [place] # (Auto) 0.6 Eos # (Auto) 0.1 Baso # (Auto) 0.0 Abs Immat Gran (auto) 0.02 Absolute Neuts (auto) 3.4 Absolute Nucleated RBC 0.000 Nucleated RBC % 0.0 % Immature Plt Fraction 2.5 Sodium 136 L Potassium 3.9 Chloride 103 Carbon Dioxide 25 Anion Gap 8 BUN 27 H D Creatinine 0.76 Estim Creat Clear Calc 67 Estimated GFR > 60 Glucose 189 H Lactic Acid 3.8 H 3.7 H Calcium 8.7 Total Bilirubin 2.1 H AST 42 ALT 25 Alkaline Phosphatase 111 Ammonia 14 Total Protein 8.4 H Albumin 3.4 L Procalcitonin 0.2 Urine Color Dark yellow Urine Appearance Clear Urine pH 5.5 Ur Specific [place] 1.034 Urine Protein Trace Urine Glucose (UA) Negative Urine Ketones Trace H Ur Blood (Man) Negative Urine Nitrate Negative Urine Bilirubin 1+ H Urine Urobilinogen 2.0 H Leukocyte Esterase Rfl Negative Urine RBC 0-2 Urine WBC 0-5 Ur Squamous Epith Cells None seen Urine Bacteria None seen Urine Casts 3-5 Influenza A (RT-PCR) Negative Influenza B (RT-PCR) Negative RSV (RT-PCR) Negative SARS-CoV-2 RNA (RT-PCR) Negative Quality VTE Prophylaxis VTE prophylaxis: mechanical ordered
[2025-03-05] MEDS: LACTULOSE 20 GM/30 ML UDC PO ×2 (08:55→17:16)
[2025-03-05] MEDS: cefTRIAXone 1 GM in SODIUM CHLORIDE 0.9% IV 50 ML 100 ML IVPB (20:23)
[2025-03-05] MEDS: AZITHROMYCIN IV 500 MG in SODIUM CHLORIDE 0.9% IV 250 ML IVPB (21:16)
[2025-03-05] MEDS: SERTRALINE HCL 50 MG TABLET 100 MG PO (21:16)
[2025-03-06] VITALS (7 sets, daily range): BP systolic 114; BP diastolic 57; PULSE 58–68; RESP 18–21; TEMP 36.4; O2SAT 90–91
[2025-03-06] MEDS: IPRATROPIUM 0.5 MG/ALBUTEROL SULFATE 2.5 MG (BASE) AMPUL.NEB 3 ML INHALATION ×2 (02:30→07:51)
--- NOTE | 2025-03-06 09:07 | P.CDI_ITS ---
CDI Query Clarification Request BMI: 29.5 Nutritional Diagnostic Statement: Please refer to the comprehensive nutrition assessment for further information. If you agree with diagnosis of Severe protein calorie malnutrition related to chronic inadequate intake, impaired nutrient utilization and increased protein energy needs in the setting of chronic cirrhosis as evidenced by intakes <75% needs >1 month; severe muscle wasting (temporalis, clavicles, shoulders, interosseous) and severe fat loss (cheeks). Please specify severity if known: * Mild * Moderate * Severe * Other/Unknown <Va Vieira RN - Last Filed: 03/06/25 09:08> Clarified Diagnosis Clarified Diagnosis: severe protein-calorie malnutrition <LUCAS Gale - Last Filed: 03/06/25 14:18>
[2025-03-06 09:17] LABS: Hematocrit 28.6 % (42.0-52.0); Hemoglobin 9.3 g/dL (14.0-18.0); Immature Platelet Fraction Pct 2.0 % (0.9-11.2); Mean Corpuscular HGB Conc 32.5 g/dl (32-36); Mean Corpuscular Hemoglobin 34.2 pg (26-34); Mean Corpuscular Volume 105.1 fl (80-100); Red Blood Count 2.72 M/mm3 (4.6-6.20); White Blood Count 2.1 K/mm3 (4.5-10.0)
[2025-03-06] MEDS: BUPRENORPHINE HCL (*CRX) 8 MG SUBLINGUAL TABLET SUBLINGUAL (09:32)
[2025-03-06] MEDS: LACTULOSE 20 GM/30 ML UDC PO (09:33)
[2025-03-06 09:36] LABS: Alanine Aminotransferase 17 U/L (6-50); Albumin Level 2.5 g/dL (3.5-5.1); Alkaline Phosphatase 87 U/L (38-126); Anion Gap 0 mmol/L (4-12); Aspartate Amino Transferase 35 U/L (17-59); Bilirubin,Total 1.7 mg/dL (0.2-1.3); Blood Urea Nitrogen 16 mg/dL (9-20); Calcium 7.8 mg/dL (8.4-10.2); Carbon Dioxide 28 mmol/L (22-30); Chloride 107 mmol/L (98-107); Estimated CRCL calculation 78 ml/min; Estimated Glomerular Filt Rate > 60; Glucose 110 mg/dL (65-110); Potassium 3.7 mmol/L (3.4-5.0); Sodium 135 mmol/L (137-145); Total Protein 6.6 g/dL (6.3-8.2)
[2025-03-06 10:29] LABS: Platelet Count Result 49 k/mm3 (150-375)
[2025-03-06 10:30] LABS: Band Neutrophils Percent 1 % (0-6); Eosinophils Absolute Manual 0.04 K/mm3 (0.02-0.50); Eosinophils Percent Manual 2 % (0-4); Lymphocytes Absolute Manual 0.60 K/mm3 (1.1-4.5); Lymphocytes Percent Manual 29 % (18-44); Monocytes Absolute Manual 0.21 K/mm3 (0.1-0.90); Monocytes Percent Manual 10 % (3-9); Neutrophils Absolute Manual 1.23 K/mm3 (1.3-6.7); Neutrophils Percent Manual 58 % (46-73); Total Cells Counted 100
[2025-03-06 10:31] LABS: Burr Cells Occasional; Macrocytosis 1+ (NORMAL); Schistocytes None Seen
--- NOTE | 2025-03-06 13:08 | P.DS_ITS ---
DS: Admitting Diagnosis Discharge Date 03/06/25 Admitting Diagnosis - pneumonia - lactic acidosis - AMS - thrombocytopenia DS: Discharge Diagnosis Discharge Diagnosis (1) Pneumonia: Qualifiers: Laterality: right Lung location: lower lobe of lung Pneumonia type: due to unspecified organism Qualified Code(s): J18.9 - Pneumonia, unspecified organism Code(s): J18.9 - Pneumonia, unspecified organism Status: Acute (2) AMS (altered mental status): Qualifiers: Altered mental status type: disorientation Qualified Code(s): R41.0 - Disorientation, unspecified Code(s): R41.82 - Altered mental status, unspecified Status: Acute (3) Alcoholic cirrhosis of liver with ascites: Code(s): K70.31 - Alcoholic cirrhosis of liver with ascites Status: Acute (4) Acquired thrombocytopenia: Code(s): D69.6 - Thrombocytopenia, unspecified Status: Chronic (5) Generalized weakness: Code(s): R53.1 - Weakness Status: Acute (6) Lactic acidosis: Code(s): E87.20 - Acidosis, unspecified Status: Acute DS: Summary Hospital Course Reason for hospitalization: - pneumonia - lactic acidosis - AMS - thrombocytopenia Hospital Course: Patient is a 74-year-old male with a history of alcoholic cirrhosis with ascites, COPD, depression, and acquired thrombocytopenia who was admitted with generalized weakness and mild altered mental status. On admission, he was found to have right lower lobe pneumonia on imaging, mild lactic acidosis, and laboratory evidence of chronic liver disease with thrombocytopenia. Ammonia level was WNL. He was started on empiric IV ceftriaxone and azithromycin, and received a 30 mL/kg fluid bolus for elevated lactic acid. His lactic acid remained stable initially but subsequently trended down to normal with supportive care and without further fluid resuscitation, consistent with underlying liver dysfunction rather than ongoing sepsis. Blood cultures remained negative throughout his hospitalization. His mental status improved with treatment, and he remained hemodynamically stable without hypoxia or fever. He continued his home medications, including lactulose, Suboxone, and sertraline, and was managed with SCDs for DVT prophylaxis due to thrombocytopenia. On the day of discharge, his CBC showed WBC 2.1, Hgb 9.3, and platelets 49, which is near his baseline in the setting of cirrhosis and likely trended down due to hemodilution; there were no signs of active bleeding. He was transitioned to oral Augmentin and azithromycin to complete his course of antibiotics. The patient was instructed to follow up with his primary care provider for ongoing monitoring of his blood counts and liver disease. Time Spent with Patient Time attestation: Total time spent providing and/or coordinating discharge services: Time spent: Greater than 30 minutes Exam Narrative: General: NAD, appears deconditioned Eyes: EOMI ENT: neck supple Cardiovascular: Regular rate and rhythm Respiratory: Clear to auscultation, respirations even and unlabored on RA Gastrointestinal: Soft, non tender Genitourinary: no suprapubic tenderness Musculoskeletal: No edema Skin: warm, dry Neuro: Alert and oriented x4 Psych: Mood appropriate DS: Data Data Completed and Pending Completed studies during hospitalization: ITS Impressions Chest X-Ray 03/04/25 19:47 IMPRESSION: Bilateral lower lobe infiltrates. Head CT 03/04/25 20:16 IMPRESSION: No acute intracranial hemorrhage or extra axial fluid collections. Generalized atrophy. All CT scans at this facility are performed using low dose modulation techniques as appropriate to perform exam including the following: automated exposure control; use of iterative reconstruction technique; adjustment of the mA and/or kV according to patient size (this includes techniques or standardized protocols for targeted exams where dose is matched to indication/reason for exam). Chest/Abdomen/Pelvis CT 03/04/25 20:18 IMPRESSION: Scattered airspace opacity within the right lower lobe suggestive of pneumonia. CT abdomen and pelvis with contrast: Nodular contour of the liver suggestive of cirrhosis. No intrahepatic mass or ductal dilatation is evident. The gallbladder is unremarkable. Spleens enlarged. Splenic varices are noted. Pancreas is unremarkable. The adrenal glands are symmetric in size. The kidneys demonstrate symmetric uptake and excretion of contrast. No cystic mass is evident. There is no solid mass. There is no hydronephrosis. Evaluation of the stomach and bowel loops are limited due to lack of oral contrast. There are no bowel obstruction or acute appendicitis. There is colonic diverticulosis without evidence of acute diverticulitis. The bladder and rectum are normal. A small amount of free fluid in the pelvis. There is no significant retroperitoneal lymphadenopathy. The aorta, visceral vessels and renal arteries demonstrate normal caliber and patency. The lower thoracic and lumbar vertebrae are in normal alignment. IMPRESSION: Cirrhotic liver. Splenomegaly and splenic varices are noted. Colonic diverticulosis without evidence of acute diverticulitis. Small amount of free fluid in the pelvis. All CT scans at this facility are performed using low dose modulation techniques as appropriate to perform exam including the following: automated exposure control; use of iterative reconstruction technique; adjustment of the mA and/or kV according to patient size (this includes techniques or standardized protocols for targeted exams where dose is matched to indication/reason for exam) Labs on day of discharge: Labs from last 24 hours 03/06/25 03/05/25 09:09 13:44 WBC 2.1 L RBC 2.72 L Hgb 9.3 L Hct 28.6 L MCV 105.1 H MCH 34.2 H MCHC 32.5 RDW 16.5 H Plt Count 49 L MPV 10.6 H Immature Gran % (Auto) Not Reportable Neut % (Auto) Not Reportable Lymph % (Auto) Not Reportable Cass % (Auto) Not Reportable Eos % (Auto) Not Reportable Baso % (Auto) Not Reportable Lymph # (Auto) Not Reportable Cass # (Auto) Not Reportable Eos # (Auto) Not Reportable Baso # (Auto) Not Reportable Abs Immat Gran (auto) Not Reportable Absolute Neuts (auto) Not Reportable Absolute Nucleated RBC Not Reportable Total Counted 100 Neutrophils % (Manual) 58 Band Neutrophils % 1 Lymphocytes % (Manual) 29 Monocytes % (Manual) 10 H Eosinophils % (Manual) 2 Nucleated RBC % Not Reportable Abs Neuts (Manual) 1.23 L Abs Lymphs (Manual) 0.60 L Abs Monocytes (Manual) 0.21 Absolute Eos (Manual) 0.04 Platelet Estimate Decreased % Immature Plt Fraction 2.0 Macrocytosis 1+ Shaggy Cells Occasional Schistocytes None seen Sodium 135 L Potassium 3.7 Chloride 107 Carbon Dioxide 28 Anion Gap 0 L BUN 16 D Creatinine 0.64 L Estim Creat Clear Calc 78 Estimated GFR > 60 Glucose 110 Lactic Acid 1.4 Calcium 7.8 L Total Bilirubin 1.7 H AST 35 ALT 17 Alkaline Phosphatase 87 Total Protein 6.6 Albumin 2.5 L Discharge Plan Discharge Attending physician on discharge: Alondra Pro Consulting providers: Karen Morris Discharging Clinician: Karen Morris Anticipated Discharge Date/Time: 03/06/25 14:13 Patient Disposition: Home Activity: may shower Diet: regular Discharge Instructions: Discharge Instructions: Pneumonia, Confusion, and Pancytopenia Diagnosis: * Pneumonia (lung infection) * Recent confusion (now improved) * Pancytopenia (low blood counts) due to cirrhosis Medications at Discharge: * Augmentin (amoxicillin/clavulanate):?Take as prescribed. * Azithromycin:?Take as prescribed. Antibiotic Side Effects to Watch For: * Augmentin:?Upset stomach, diarrhea, rash, allergic reactions (hives, swelling, difficulty breathing). * Azithromycin:?Nausea, diarrhea, abdominal pain, possible changes in heart rhythm (palpitations, dizziness), allergic reactions. * If you develop severe diarrhea, rash, difficulty breathing, or swelling, seek medical attention immediately. Oxygen: * You are now stable on room air and do not require supplemental oxygen at home. Confusion: * Your confusion has improved. If you or your family notice new or worsening confusion, contact your healthcare provider. Pancytopenia (Low Blood Counts): * Due to your cirrhosis, your blood counts are low. * Watch for signs of bleeding: * New or worsening bruising * Nosebleeds * Bleeding gums * Blood in urine or stool * Prolonged bleeding from cuts * If you notice any of these symptoms, contact your healthcare provider promptly or go to the emergency room if severe. Follow-Up: * Repeat CBC (Complete Blood Count): * Schedule a blood test with your primary care provider at the [facility] in 1?2 weeks to monitor your blood counts. * Physical Therapy: * Discuss outpatient physical therapy with your primary care provider to help regain strength and mobility after your illness. General Instructions: * Finish all antibiotics as prescribed, even if you feel better. * Rest as needed and gradually increase your activity as tolerated. * Stay well hydrated and eat a balanced diet. * Monitor for any new or worsening symptoms, including fever, shortness of breath, chest pain, or confusion. When to Seek Immediate Medical Attention: * Difficulty breathing * Chest pain * Severe weakness or confusion * Severe bleeding or inability to stop bleeding * Signs of a severe allergic reaction (swelling of face/lips/tongue, difficulty breathing, hives) Contact Information: * For any concerns or questions, contact your primary care provider at the [facility] or return to the emergency department if urgent. Next Steps: * Arrange follow-up with your [facility] primary care provider within 1?2 weeks for bloo d work and to discuss physical therapy. Patient/Family Acknowledgement: * Please review these instructions and ask any questions before leaving the hospital. Patient Instructions: Antibiotic Form Patient Language: Welsh Stand Alone Forms: General Discharge Information Follow-up/Referrals: [facility] [Primary Care Provider, Medical] Referral Note: follow-up in 1 week Discharge Medications: New amoxicillin-pot clavulanate 875-125 mg tablet 1 tablet PO Q12H Qty: 6 0RF azithromycin 500 mg tablet 500 mg PO DAILY 3 Days Qty: 3 0RF Continued carvedilol [Coreg] 6.25 mg Tablet 6.25 mg PO BID sertraline 100 mg Tablet 100 mg PO QHS lactulose 20 gram/30 mL Solution 30 ml PO BID Patient Comments: Take 30 ml dose every morning, if patient has 1 BM for that day give PM dose. If patient has 2 BM's, hold PM dose. Suboxone 8 mg sublingual BID Date of admission: 03/04/25 21:13 Primary Care Provider: EDGAR CRABTREE,JANNETTE Admitting Provider: Antoinette Lopez Attending physician on admission: Antoinette Lopez Condition: Stable
== END 2025-03-06 15:20 | disposition home or self-care (01) ==
LOC: ANHED 21:33 → ANH3MEDSUR 03-05 06:57
PROVIDERS: Physician Assistant; Admitting Provider Internal Medicine; Emergency Provider Emergency Medicine; Visit Provider Family Medicine
DX: J18.9 Pneumonia, unspecified organism (principal); R41.82 Altered mental status, unspecified; E87.20 Acidosis, unspecified; I10 Essential (primary) hypertension; J44.9 Chronic obstructive pulmonary disease, unspecified; D69.6 Thrombocytopenia, unspecified; R53.1 Weakness; E43 Unspecified severe protein-calorie malnutrition; Z68.29 Body mass index [BMI] 29.0-29.9, adult; K70.31 Alcoholic cirrhosis of liver with ascites; F10.21 Alcohol dependence, in remission; Z20.822 Contact with and (suspected) exposure to COVID-19; Z96.642 Presence of left artificial hip joint; Z87.891 Personal history of nicotine dependence
CPT/HCPCS: 36415; 70450; 71045; 71260; 74177; 80053; 81001; 82140; 83605; 84145; 85025; 85055; 87040; 87449; 87637; 87899; 93005; 94640; 96365; 96376; 97161; 99285; A9270; G0378; J0456; J0571; J0696; J7050; J7120; Q9967